=== PATIENT | male | born 1955 | race Caucasian/White ===

== ENCOUNTER 2020-12-13 15:27 | Inpatient (IN) | payer OTHER, SELFPAY ==
[2020-12-13] VITALS (7 sets, daily range): BP systolic 94–116; BP diastolic 52–65; PULSE 72–94; RESP 15–26; TEMP 36.6–37.3; O2SAT 93–97
--- NOTE | ~2020-12-13 | CT_ITS ---
EXAMINATION: CTA chest PE protocol DATE: 12/13/2020 23:52 INDICATION: Shortness of breath. Weakness. Covid-positive. TECHNIQUE: Computed tomography angiography (CTA) of the chest was performed with 100 mL Omnipaque-350 intravenous contrast timed to evaluate the pulmonary arteries. Coronal maximum intensity projection 3D-reconstructions were created by the technologist. Automated exposure control and iterative reconst ruction technique were employed. Exam dose: 975.75 mGy-cm total exam DLP. COMPARISON: 12/13/2020 portable AP chest FINDINGS: There is diagnostic contrast enhancement of the pulmonary arteries and no evidence of pulmo nary embolism. No thoracic aortic aneurysm or dissection. No hilar or mediastinal mass lesion or lymphadenopathy. Normal heart size. No pericardial or pleural effusion. There are extensive patchy bilateral pulmonary infiltrates consistent with Covid 19 pneumonia. Small sliding hiatal hernia. IMPRESSION: Extensive bilateral multifocal pneumonia consistent with Covid 19 pneumonia No evidence of pulmonary embolism Reviewed, dictated and finalized at [facility]. Reviewed, dictated and finalized at [facility].
--- NOTE | ~2020-12-13 | XR_ITS ---
EXAMINATION: XR chest 1V portable DATE: 12/15/2020 08:43 INDICATION: COVID pneumonia. Low oxygen saturation. TECHNIQUE: frontal view of the chest was obtained. COMPARISON: Chest radiograph dated 12/13/2020 FINDINGS: No significant interval change in patchy airspace opacities throughout both lungs. No pleural effusio n or pneumothorax. The cardiomediastinal silhouette is normal. IMPRESSION: 1. No significant change in scattered patchy bilateral lung disease consistent with COVID pneumonia. Reviewed, dictated and finalized at [facility].
--- NOTE | ~2020-12-13 | XR_ITS ---
EXAMINATION: XR chest 1V portable DATE: 12/13/2020 15:49 INDICATION: COVID positive. Worsening shortness of breath and cough TECHNIQUE: frontal view of the chest was obtained. COMPARISON: None FINDINGS: There are patchy airspace opacities in the bilateral mid and lower lung zones. No pleural effusion or pneumothorax. Cardiomediastinal silhouette is within normal limits for AP technique. IMPRESSION: 1. Patchy bilateral lung disease consistent with COVID pneumonia with differential including less lik gary pulmonary edema. Reviewed, dictated and finalized at [facility]. IMPRESSION: 1. Patchy bilateral lung disease consistent with COVID pneumonia with different ial including less likely pulmonary edema.
--- NOTE | 2020-12-13 15:38 | ECG_ITS ---
Measurements Intervals [place] Rate: 86 P: 36 MS: 174 QRS: -37 QRSD: 134 T: -7 QT: 393 QTc: 470 Interpretive Statements SINUS RHYTHM LEFT AXIS DEVIATION INTRAVENTRICULAR CONDUCTION DELAY BORDERLINE R WAVE PROGRESSION, ANTERIOR LEADS BORDERLINE T WAVE ABNORMALITY- INFERIOR LEADS BASELINE ARTIFACT- II, III, AVR, AVF, V1, V3-V6 BORDERLINE ECG Electronically Signed On 12-13-2020 15:45:52 CDT by Tulio Hatfield D.O.
[2020-12-13 16:14] LABS: Basophils Percent Auto 0.1 % (0.2-1.2); Hematocrit 43.7 % (42.0-52.0); Hemoglobin 14.4 g/dL (14.0-18.0); Immature Granulocyte Absolute 0.03 K/mm3 (0.00-0.031); Immature Granulocyte Percent A 0.3 % (0-0.5); Immature Platelet Fraction Pct 4.1 % (0.9-11.2); Lymphocytes Absolute Auto 0.52 K/mm3 (0.9-3.2); Mean Corpuscular Hemoglobin 26.8 pg (26-34); Mean Corpuscular Volume 81.2 fl (80-100); Mean Platelet Volume 10.5 fl (7.4-10.4); Monocytes Absolute Auto 0.5 K/mm3 (0.1-0.6); Monocytes Percent Auto 6.3 % (2.6-8.5); Neutrophils Absolute Auto 7.5 K/mm3 (1.3-6.7); Neutrophils Percent Auto 87.3 % (45.5-73.1); Platelet Count Result 141 k/mm3 (150-375); Red Blood Count 5.38 M/mm3 (4.6-6.20); Red Cell Distribution Width 14.3 % (11.5-14.5); White Blood Count 8.6 K/mm3 (4.5-10.0)
[2020-12-13 16:22] LABS: Anion Gap 13 mmol/L (8-16); Blood Urea Nitrogen 40 mg/dL (9-20); Calcium 8.6 mg/dL (8.4-10.2); Carbon Dioxide 18 mmol/L (22-30); Chloride 100 mmol/L (98-107); Estimated CRCL calculation 76 ml/min; Estimated Glomerular Filt Rate 51; Glucose 90 mg/dL (65-110); Potassium 3.8 mmol/L (3.4-5.0); Sodium 131 mmol/L (137-145)
--- NOTE | 2020-12-13 17:33 | ED.SOB ---
HPI - SOB/Dyspnea General Chief Complaint: Shortness of Breath/Dyspnea Stated Complaint: SOB,Covid + Time Seen by Provider: 12/13/20 16:25 Source: patient Mode of arrival: ambulatory Limitations: no limitations History of Present Illness HPI Narrative: This is a 65-year-old male that presents to the emergency department for shortness of breath. Reports ongoing cold symptoms x5 days. Reports fever, cough, and congestion. Reports he was diagnosed with coronavirus 3 days ago. Reports today for worsening shortness of breath. He is vaccinated against coronavirus. Denies chest pain or lower extremity edema. Related Data Home Medications Medication Instructions Recorded Confirmed alfuzosin [Uroxatral] 10 mg PO DAILY 12/13/20 clopidogrel 12/13/20 dapagliflozin-metformin [Xigduo XR] PO 12/13/20 glimepiride 2 mg PO DAILY 12/13/20 lisinopril 12/13/20 semaglutide [Ozempic] 0.25 mg SUBCUT WEEKLY 12/13/20 Allergies Allergy/AdvReac Type Severity Reaction Status Date / Time Sulfa (Sulfonamide Allergy Rash Verified 12/13/20 15:38 Antibiotics) Review of Systems Review of Systems: CONSTITUTIONAL: Reports fever CARDIOVASCULAR: Denies chest pain, or edema. RESPIRATORY: Reports cough and dyspnea. GASTROINTESTINAL: Denies abdominal pain, nausea, vomiting All systems reviewed & are unremarkable except as noted in HPI and below PMFSH Past Medical History Medical History (Updated 12/13/20 @ 17:39 by Ghislaine Senior PA-C) History of diabetes mellitus Social History Social History (Updated 12/13/20 @ 17:38 by Ghislaine Senior PA-C) Substance use: never Gender identity (if verbalized by the patient): Male Exam Narrative: GENERAL: Well-appearing, well-nourished, and in no acute distress. HEAD: Normocephalic, atraumatic. EYES: EOMI. CHEST: Clear to auscultation. No respiratory distress. No wheezes rales or rhonchi HEART: Regular rate and rhythm. No murmur heard. Normal peripheral pulses. ABDOMEN: Soft, nontender, nondistended, normal active bowel sounds. EXTREMITIES: Normal range of motion. No edema. SKIN: Warm, dry, no rash. NEURO: No focal deficits. Alert and oriented x3. PSYCH: Normal mood and affect Course Consultations Consultation #1: Spoke with hospitalist about patient and work-up accepts admission Date: 12/13/20 Time: 19:00 Vital Signs Vital signs: Vital Signs Temperature 97.8 F 12/13/20 15:30 Pulse Rate 85 12/13/20 15:30 Respiratory Rate 18 12/13/20 15:30 Blood Pressure 116/59 L 12/13/20 15:30 Pulse Oximetry 93 12/13/20 15:30 Temperature 98.9 F 12/13/20 19:23 Pulse Rate 94 12/13/20 19:23 Respiratory Rate 15 12/13/20 19:23 Blood Pressure 108/59 L 12/13/20 19:23 Pulse Oximetry 95 12/13/20 19:23 MDM - SOB/Dyspnea MDM Narrative Medical decision making narrative: Patient presents to the emergency department for worsening shortness of breath. Recently diagnosed with coronavirus. Hypoxic on arrival to the ED. Placed on 2 L nasal cannula with improvement. CBC without concerning findings. Metabolic panel with mild elevation in creatinine to 1.4. Patient lightly hydrated in the ED with IV fluids. Inflammatory markers are not elevated. Chest x-ray shows bilateral patchy infiltrates consistent with Covid pneumonia. Patient started on dexamethasone and remdesivir. Spoke with hospitalist about patient and work-up accepts admission Lab Data Attestation: I reviewed the patient's lab results. Result diagrams: 12/13/20 15:53 12/13/20 15:53 Labs: Lab Results 12/13/20 12/13/20 12/13/20 Range/Units 15:33 15:53 15:53 WBC 8.6 (4.5-10.0) K/mm3 RBC 5.38 (4.6-6.20) M/mm3 Hgb 14.4 (14.0-18.0) g/dL Hct 43.7 (42.0-52.0) % MCV 81.2 (80-100) fl MCH 26.8 (26-34) pg MCHC 33.0 (32-36) g/dl RDW 14.3 (11.5-14.5) % Plt Count 141 L (150-375) k/mm3 MPV 10.5 H (7.4-10.4) fl Immature Gran %
[2020-12-13] MEDS: SODIUM CHLORIDE 0.9% IV 500 ML 999 ML IV CONT (17:40)
[2020-12-13] MEDS: DEXAMETHASONE SOD PHOS INJ 4 MG/ML VIAL 6 MG IV PUSH (17:41)
[2020-12-13 18:25] LABS: INR 0.9; Prothrombin Time 12.4 Seconds (11.1-14.7)
[2020-12-13 18:26] LABS: Partial Thromboplastin Time 32.6 SECONDS (22.3-36.8)
[2020-12-13 18:43] LABS: Alanine Aminotransferase 45 U/L (4-50); Albumin Level 3.9 g/dL (3.5-5.1); Alkaline Phosphatase 99 U/L (38-126); Aspartate Amino Transferase 42 U/L (17-59); Lactate Dehydrogenase 574 U/L (313-618)
[2020-12-13 19:08] LABS: CRP 17.3 mg/dL (<1.0)
[2020-12-13] MEDS: REMDESIVIR 200 MG/NS 250 ML 200 MG/250 ML BAG 250 MG IVPB (19:23)
[2020-12-13 20:13] LABS: Procalcitonin 1.3 ng/mL
--- NOTE | 2020-12-13 20:47 | PC.NURSE ---
ED Provider notified that patient uses CPAP at 12 or 13 cmH20. He reports that he is unable to even take a nap without cpap due to apnea and was told that his was unable to bring his home machine in to the hospital due to infection risk. ED PA is aware of this and need for CPAP
--- NOTE | 2020-12-13 23:06 | PM.IMHP ---
H&P: HPI History of Present Illness Date/Time: 12/13/20 23:06 this is a 65-year-old male patient who stated that he was fully vaccinated for the COVID-19 back in June or July. The patient had been on vacation with his family when his mother and his and daughter also contacted COVID-19. They all had also have been vaccinated as well. The patient stated that he went to [facility] on Wednesday and was tested for COVID-19 and it turned positive immediately. The patient stated he started having symptoms on Wednesday. Patient stated he had been in condo on [address] [facility]. The patient stated he has been so weak for the last 3 or 4 days that he was not able to get out of bed. The patient stated that he has had a fever over 101. The patient is diabetic any stated that his last A1c was over 8. The patient's drove the patient home [facility] and the patient had increasing shortness of breath. Patient was placed on oxygen at 2 L per nasal cannula. According to documentation his lowest O2 saturation was 93%. The patient was started on Decadron and remdesivir. Patient has cough and congestion fatigue and weakness. Patient's chest x-ray was read as patchy bilateral lung disease consistent with COVID pneumonia and differential including less likely pulmonary edema. Sodium was noted to be 131. Creatinine 1.4 GFR 51. The patient does not recall having any previous kidney disease. CRP 17.3 and ferritin 359. The patient was placed on oxygen at 2 L per nasal cannula. Patient is being admitted to inpatient services on the date of service of 12/13/2020. Chief Complaint: Shortness of Review of Systems Review of Systems: All systems reviewed & are unremarkable except as noted in HPI and below Constitutional: Constitutional: Reports as per HPI and Reports no additional constitutional complaints Eyes: Eyes: Reports as per HPI and Reports no additional eye complaints ENT: Reports system reviewed and no additional complaints, except as documented and Reports Normal hearing present Cardiovascular: Cardiovascular: Reports no additional cardiovascular complaints Respiratory: Respiratory: Reports no additional respiratory complaints and Reports no additional respiratory complaints Gastrointestinal: Gastrointestinal: Reports as per HPI and Reports no additional gastrointestinal complaints Musculoskeletal: Musculoskeletal: Reports no additional musculoskeletal complaints Integumentary/Breasts: Skin/Breast: Reports system reviewed and no additional complaints, except as docu and Reports as per HPI Neurologic: Reports system reviewed and no additional complaints, except as documented, Reports as per HPI and Reports Normal hearing present Psychiatric: Psychiatric: Reports no additional psychiatric complaints and Reports as per HPI Endocrine: Endocrine: Reports no additional endocrine complaints Hematologic/Lymphatic: Hematologic/Lymphatic: Reports no additional hematologic/lymphatic complaints Allergic/Immunologic: Allergic/Immunologic: Reports no additional allergic/immunologic complaints [facility] Past Medical History Medical History (Updated 12/13/20 @ 23:25 by Stephanie Payton NP) BPH (benign prostatic hyperplasia) DM2 (diabetes mellitus, type 2) History of diabetes mellitus Loose right total knee arthroplasty Venous stasis Surgical History Surgical History (Updated 12/13/20 @ 23:19 by Stephanie Payton NP) History of bilateral carpal tunnel release S/P rotator cuff repair Family History Family History (Updated 12/13/20 @ 23:19 by Stephanie Payton NP) Sibling Acute myocardial infarction Father Alzheimer's dementia Social History Social History (Updated 12/13/20 @ 23:20 by Stephanie Payton NP) Social History: The patient is and lives with his . He has 3 children. His is the durable power workers compensation attorney for healthcare. The patient desires to be a full code. The patient works for [employer]. The patient does
[2020-12-14] VITALS (16 sets, daily range): BP systolic 100–132; BP diastolic 59–67; PULSE 64–91; RESP 16–22; TEMP 35–36.7; O2SAT 90–94; BMI 45.2
--- NOTE | 2020-12-14 00:10 | ADMGEN ---
This patient, Roland Gonsales, was admitted to 3 [facility] Surg Room 327-01. Patient/family oriented to hospital policies and general routines including ID bracelet, bed and alarms, visiting hours, pain management, procedures, bathroom and other care routines, personal items, smoking policy, room service/diet, and visiting hours. Information on how to activate the Rapid Response Team has been discussed. Patient/Family are encouraged to report perceived risks to care and to ask questions if they do not understand what they are told or what they should do.
[2020-12-14 05:47] LABS: Basophils Percent Auto 0.1 % (0.2-1.2); Hematocrit 41.6 % (42.0-52.0); Hemoglobin 13.6 g/dL (14.0-18.0); Immature Granulocyte Absolute 0.05 K/mm3 (0.00-0.031); Immature Granulocyte Percent A 0.6 % (0-0.5); Immature Platelet Fraction Pct 4.2 % (0.9-11.2); Lymphocytes Absolute Auto 0.37 K/mm3 (0.9-3.2); Lymphocytes Percent Auto 4.7 % (18.3-44.2); Mean Corpuscular HGB Conc 32.7 g/dl (32-36); Mean Corpuscular Hemoglobin 26.7 pg (26-34); Mean Corpuscular Volume 81.6 fl (80-100); Mean Platelet Volume 10.3 fl (7.4-10.4); Monocytes Absolute Auto 0.4 K/mm3 (0.1-0.6); Monocytes Percent Auto 5.1 % (2.6-8.5); Neutrophils Absolute Auto 7.1 K/mm3 (1.3-6.7); Neutrophils Percent Auto 89.5 % (45.5-73.1); Platelet Count Result 143 k/mm3 (150-375); Red Cell Distribution Width 14.1 % (11.5-14.5); White Blood Count 7.9 K/mm3 (4.5-10.0)
[2020-12-14 05:52] LABS: Lactic Acid Reflex 0.9 mmol/L (0.7-2.1)
[2020-12-14 05:55] LABS: Alanine Aminotransferase 38 U/L (4-50); Albumin Level 3.6 g/dL (3.5-5.1); Alkaline Phosphatase 94 U/L (38-126); Anion Gap 10 mmol/L (8-16); Aspartate Amino Transferase 36 U/L (17-59); Bilirubin,Total 0.8 mg/dL (0.2-1.3); Blood Urea Nitrogen 38 mg/dL (9-20); Calcium 8.4 mg/dL (8.4-10.2); Carbon Dioxide 19 mmol/L (22-30); Chloride 107 mmol/L (98-107); Estimated CRCL calculation 92 ml/min; Estimated Glomerular Filt Rate > 60; Glucose 135 mg/dL (65-110); Lactate Dehydrogenase 526 U/L (313-618); Magnesium 2.3 mg/dL (1.6-2.3); Potassium 4.4 mmol/L (3.4-5.0); Sodium 136 mmol/L (137-145)
[2020-12-14 05:58] LABS: Hemoglobin A1C 7.3 % (<5.7)
[2020-12-14 06:04] LABS: Prothrombin Time 12.9 Seconds (11.1-14.7)
[2020-12-14 07:32] LABS: Thyroid Stimulating Hormone Reflex 0.046 uIU/mL (0.465-4.68)
[2020-12-14 08:31] LABS: Glucose Point of Care 124 mg/dl (65-105)
[2020-12-14] MEDS: DEXAMETHASONE SOD PHOS INJ 4 MG/ML VIAL 6 MG IV PUSH (09:21)
[2020-12-14 09:33] LABS: Free T4 Free Thyroxine Reflex 1.69 ng/dL (0.78-2.19)
[2020-12-14 10:31] LABS: Total Triiodothyronine (T3) 0.92 NG/ML (0.97-1.69)
[2020-12-14 12:58] LABS: Glucose Point of Care 143 mg/dl (65-105)
--- NOTE | 2020-12-14 14:01 | PM.IMPN ---
Progress Note: A&P Assessment and Plan (1) Acute respiratory failure due to COVID-19: Code(s): U07.1 - COVID-19; J96.00 - Acute respiratory failure, unspecified whether with hypoxia or hypercapnia Status: Acute Assessment and Plan: Patient tested positive this past Wednesday and has been fully vaccinated with Pfizer 2 doses in July. Patient's low is reported PO2 was 93%. The patient is currently on 2 L per nasal cannula, wean from 4 L this morning. started on Decadron and remdesivir. having difficulty speaking in full sentences. Continue with DuoNeb q.4 hours inhalers. And albuterol Q [address] scan did not show any pulmonary emboli but did show bilateral COVID pneumonia I instructed the patient to lay on his abdomen or on his left or right side, but to avoid lying on his back. He could also set up in the chair or have a recliner brought in. He is to continue using his CPAP machine from home with naps and nighttime sleeping Ordered incentive spirometer Checking LDH and ferritin and CRP daily to monitor for improvement (2) BPH (benign prostatic hyperplasia): Code(s): N40.0 - Benign prostatic hyperplasia without lower urinary tract symptoms Status: Chronic Assessment and Plan: Continue with patient's home medication of Uroxatral. Patient voiding without difficulty at this time (3) Venous stasis: Code(s): I87.8 - Other specified disorders of veins Status: Chronic Assessment and Plan: Patient stated he is on Plavix, continued No swelling or redness indicating infection or fluid collection at this time Peripheral circulation intact with cap refill and warm toes to the touch (4) DM2 (diabetes mellitus, type 2): Code(s): E11.9 - Type 2 diabetes mellitus without complications Status: Chronic Assessment and Plan: Accu-Cheks AC and HS Receiving sliding scale insulin. Will continue to hold the metformin due to a CT angio completed yesterday Glucose levels controlled at this time in the 130s Continue diabetic diet Ordered PT and OT (5) Acute renal failure: Code(s): N17.9 - Acute kidney failure, unspecified Status: Acute Assessment and Plan: Holding lisinopril and his metformin for the acute renal failure. No history of previous history of chronic renal disease. Creatinine improved from 1.4-1.1 today continue strict I/Os and daily weights. Subjective Date/time seen: 12/14/20 14:01 Roland was admitted with shortness of breath and dyspnea, found to be positive with COVID pneumonia on his CT scan but no pulmonary emboli. He was on 4 L nasal cannula this morning and wean to 2 L at this time. Encourage the patient to slowly and gradually increase his activity level, while allowing the nurse to monitor his pulse ox with ambulation and activity. He and his and daughter did receive both of his Pfizer vaccines in July, and unfortunately they all have COVID at this time. His and 40-year-old daughter are doing well at home. Roland has some comorbidities making him more at risk for COVID complications, including diabetes, severe sleep apnea and severe morbid obesity. His LDH is elevated at 526 today his lactic is normal, I have ordered CRP level in the morning as well as ferritin and LDH repeat. Will continue his IV Remdesivir and IV dexamethasone. I have placed him on DuoNeb treatments Q 4 Hrs and continued the p.r.n. albuterol. I ordered incentive spirometer, PT and OT. Review of Systems Review of Systems: All systems reviewed & are unremarkable except as noted in HPI and below Constitutional: Constitutional: Reports as per HPI and Reports no additional constitutional complaints Eyes: Eyes: Reports as per HPI and Reports no additional eye complaints ENT: Reports system reviewed and no additional complaints, except as documented and Reports Normal hearing present Cardiovascular: Cardiovascular: Reports no additional cardi
[2020-12-14] MEDS: IPRATROPIUM BR 0.02% INH SOLN 0.5 MG/2.5 ML VIAL INHALATION ×2 (16:28→21:35)
[2020-12-14] MEDS: ALBUTEROL SULFATE NEB 2.5 MG/0.5 ML INH INHALATION ×2 (16:28→21:35)
[2020-12-14 17:49] LABS: Glucose Point of Care 186 mg/dl (65-105)
[2020-12-14] MEDS: REMDESIVIR 100 MG/NS 250 ML 100 MG/250 ML BAG 250 MG IVPB (20:06)
[2020-12-14 20:56] LABS: Glucose Point of Care 350 mg/dl (65-105)
[2020-12-14] MEDS: INSULIN ASPART (*BKC) 100 UNITS/ML 6 UNITS SUB-Q (21:11)
[2020-12-15] VITALS (17 sets, daily range): BP systolic 86–125; BP diastolic 39–67; PULSE 58–87; RESP 14–24; TEMP 35.9–36.7; O2SAT 6–97
[2020-12-15] MEDS: IPRATROPIUM BR 0.02% INH SOLN 0.5 MG/2.5 ML VIAL INHALATION ×4 (00:08→20:48)
[2020-12-15] MEDS: ALBUTEROL SULFATE NEB 2.5 MG/0.5 ML INH INHALATION ×4 (00:08→20:48)
[2020-12-15 06:15] LABS: Hematocrit 41.6 % (42.0-52.0); Hemoglobin 13.5 g/dL (14.0-18.0); Mean Corpuscular HGB Conc 32.5 g/dl (32-36); Mean Corpuscular Hemoglobin 26.8 pg (26-34); Mean Corpuscular Volume 82.7 fl (80-100); Mean Platelet Volume 10.2 fl (7.4-10.4); Platelet Count Result 162 k/mm3 (150-375); Red Blood Count 5.03 M/mm3 (4.6-6.20); Red Cell Distribution Width 13.9 % (11.5-14.5); White Blood Count 6.7 K/mm3 (4.5-10.0)
[2020-12-15 06:37] LABS: Alanine Aminotransferase 34 U/L (4-50); Albumin Level 3.5 g/dL (3.5-5.1); Alkaline Phosphatase 89 U/L (38-126); Anion Gap 9 mmol/L (8-16); Aspartate Amino Transferase 31 U/L (17-59); Bilirubin,Total 0.4 mg/dL (0.2-1.3); Blood Urea Nitrogen 41 mg/dL (9-20); CRP 7.4 mg/dL (<1.0); Calcium 8.6 mg/dL (8.4-10.2); Carbon Dioxide 20 mmol/L (22-30); Chloride 107 mmol/L (98-107); Estimated CRCL calculation 92 ml/min; Estimated Glomerular Filt Rate > 60; Glucose 178 mg/dL (65-110); Lactate Dehydrogenase 484 U/L (313-618); Potassium 3.8 mmol/L (3.4-5.0); Sodium 136 mmol/L (137-145)
--- NOTE | 2020-12-15 08:28 | PM.IMPN ---
Progress Note: A&P Assessment and Plan (1) Acute respiratory failure due to COVID-19: Code(s): U07.1 - COVID-19; J96.00 - Acute respiratory failure, unspecified whether with hypoxia or hypercapnia Status: Acute Assessment and Plan: Patient tested positive this past Wednesday and has been fully vaccinated with Pfizer 2 doses in July. Patient's low is reported PO2 was 93%. The patient is currently on 6 L per nasal cannula, poor ABG and desaturated on 2-4L O2 this morning. started on Decadron and remdesivir. having difficulty speaking in full sentences - improved and resolved. Continue with DuoNeb q.4 hours inhalers. And albuterol Q [address] scan did not show any pulmonary emboli but did show bilateral COVID pneumonia I instructed the patient to lay on his abdomen or on his left or right side, but to avoid lying on his back. He could also set up in the chair or have a recliner brought in. He is to continue using his CPAP machine from home with naps and nighttime sleeping using incentive spirometer - getting 1250-1500ml volumes normal LDH and ferritin rising and CRP improving daily to monitor for improvement (2) BPH (benign prostatic hyperplasia): Code(s): N40.0 - Benign prostatic hyperplasia without lower urinary tract symptoms Status: Chronic Assessment and Plan: Continue with patient's home medication of Uroxatral. Patient voiding without difficulty at this time (3) Venous stasis: Code(s): I87.8 - Other specified disorders of veins Status: Chronic Assessment and Plan: Patient stated he is on Plavix, continued No swelling or redness indicating infection or fluid collection at this time Peripheral circulation intact with cap refill and warm toes to the touch (4) DM2 (diabetes mellitus, type 2): Code(s): E11.9 - Type 2 diabetes mellitus without complications Status: Chronic Assessment and Plan: Accu-Cheks AC and HS Receiving sliding scale insulin. Will continue to hold the metformin due to a CT angio completed yesterday Glucose levels controlled at this time Continue diabetic diet Ordered PT and OT (5) Acute renal failure: Code(s): N17.9 - Acute kidney failure, unspecified Status: Acute Assessment and Plan: Holding lisinopril and his metformin for the acute renal failure. No history of previous history of chronic renal disease. Creatinine improved from 1.4-1.1 today continue strict I/Os and daily weights. Subjective Date/time seen: 12/15/20 08:28 Roland's blood pressure was low this morning upon review of vital signs from overnight. Lowest was 86/39 and the last blood pressure checked was 97/67. I have instructed nursing to hold his lisinopril dosing at this time and recheck his vital signs. I also noticed that his O2 sats were lower overnight than yesterday. He was weaned from 4 L to 2 L of oxygen yesterday and continue that overnight. With his CPAP wearing. His O2 sats were between 92 and 96 overnight. I have ordered a urinalysis, urine culture, blood cultures, D-dimer, and ABG. I ordered a chest x-ray today, the last imaging done was 2 days ago. His pO2 on 4 L O2 NC was low, so I increased him to 6 L O2 NC and instructed nursing staff to keep him there overnight, and resume weaning to 4 L O2 tomorrow. CXR showed no change. CRP improved today. LDH remained WNL, Ferritin increased from 359 to 459. Repeating tomorrow. When I went to see Roland this afternoon, after these interventions, he stated that he was feeling MUCH much better and was very happy to see me. He is able to now carry on longer conversations and has been ambulating about his hospital room to increase his activity. He was able to demonstrate getting 1500ml volumes on his incentive spirometer for me. Review of Systems Review of Systems: All systems reviewed & are unremarkable except as noted in HPI and below Constitutional: Constitutional: Reports
[2020-12-15 08:32] LABS: Glucose Point of Care 144 mg/dl (65-105)
[2020-12-15 09:37] LABS: D Dimer 1.14 ug/mL (<0.48)
[2020-12-15] MEDS: PANTOPRAZOLE 40 MG TABLET PO (10:02)
[2020-12-15] MEDS: DEXAMETHASONE SOD PHOS INJ 4 MG/ML VIAL 6 MG IV PUSH (10:02)
[2020-12-15] MEDS: lisinopriL 10 MG TABLET PO (10:02)
[2020-12-15] MEDS: CLOPIDOGREL BISULFATE 75 MG TABLET PO (10:03)
[2020-12-15 12:52] LABS: Glucose Point of Care 226 mg/dl (65-105)
[2020-12-15] MEDS: INSULIN ASPART (*BKC) 100 UNITS/ML SUB-Q ×2 (12:58→17:36)
[2020-12-15 13:41] LABS: Alveolar/Arterial O2 Gradient 153.3 mmHg; Base Excess ABG -3.1 mEq/l (+/-2.0); Device NASAL CANNULA; Fractional Inspired Oxygen 36 %; HCO3 ABG 19.8 mEq/l (22.0-26.0); Modified Allen's Test Pass; Oxygen Content ABG 18.8 %vol (16.0-22.0); Oxygen Saturation ABG 94.6 % (95.0-100.0); PO2 ABG 68.6 mmHg (80.0-100.0); PO2 FiO2 Ratio Arterial Blood 1.91 %; Site Drawn RIGHT RADIAL; Total Hemoglobin 14.4 g/dL (12.0-18.0); pH ABG 7.438 (7.350-7.450)
[2020-12-15 13:47] LABS: Add Urine Microscopic? YES; Appearance Urine Clear (Clear); Bilirubin Urine Negative (Negative); Blood Urine 1+ (Negative); Color Urine Yellow (Yellow); Glucose Urine UA 3+ mg/dL (Negative); Ketones Urine Negative (Negative); Leukocyte Esterase Ur Negative LEU/UL (NEGATIVE); Mucus Urine Rare /lpf; Nitrate Urine Negative (Negative); Protein Urine 1+ mg/dL (Negative); Specific Grav Ur 1.027 (1.001-1.035)
[2020-12-15 16:31] LABS: Glucose Point of Care 314 mg/dl (65-105)
--- NOTE | 2020-12-15 17:33 | PCRCNOTE ---
Window of time for administration has passed. See next scheduled administration.
[2020-12-15] MEDS: REMDESIVIR 100 MG/NS 250 ML 100 MG/250 ML BAG 250 MG IVPB (20:29)
[2020-12-15] MEDS: INSULIN GLARGINE (*BKC) 100 UNITS/ML 10 UNITS SUB-Q (20:30)
[2020-12-15] MEDS: CALCIUM CARBONATE (TUMS) 500 MG (200 MG ELEMENTAL) 400 MG PO (21:34)
[2020-12-16] VITALS (18 sets, daily range): BP systolic 88–136; BP diastolic 40–74; PULSE 52–98; RESP 18–28; TEMP 36.3–37.2; O2SAT 90–100
[2020-12-16] MEDS: ALBUTEROL SULFATE NEB 2.5 MG/0.5 ML INH INHALATION ×5 (01:03→21:41)
[2020-12-16] MEDS: IPRATROPIUM BR 0.02% INH SOLN 0.5 MG/2.5 ML VIAL INHALATION ×5 (01:03→21:41)
[2020-12-16 01:41] LABS: Glucose Point of Care 247 mg/dl (65-105)
[2020-12-16 06:41] LABS: Hematocrit 38.2 % (42.0-52.0); Hemoglobin 12.3 g/dL (14.0-18.0); Mean Corpuscular HGB Conc 32.2 g/dl (32-36); Mean Corpuscular Hemoglobin 26.7 pg (26-34); Mean Corpuscular Volume 82.9 fl (80-100); Mean Platelet Volume 9.9 fl (7.4-10.4); Platelet Count Result 167 k/mm3 (150-375); Red Blood Count 4.61 M/mm3 (4.6-6.20)
[2020-12-16 07:08] LABS: Prothrombin Time 13.1 Seconds (11.1-14.7)
[2020-12-16 07:10] LABS: Alanine Aminotransferase 33 U/L (4-50); Estimated CRCL calculation 101 ml/min; Estimated Glomerular Filt Rate > 60; Lactate Dehydrogenase 422 U/L (313-618)
[2020-12-16 07:28] LABS: D Dimer 1.08 ug/mL (<0.48)
[2020-12-16 08:14] LABS: Glucose Point of Care 133 mg/dl (65-105)
[2020-12-16] MEDS: DEXAMETHASONE SOD PHOS INJ 4 MG/ML VIAL 6 MG IV PUSH (09:10)
[2020-12-16] MEDS: lisinopriL 10 MG TABLET PO (09:10)
[2020-12-16] MEDS: PANTOPRAZOLE 40 MG TABLET PO (09:10)
[2020-12-16] MEDS: CLOPIDOGREL BISULFATE 75 MG TABLET PO (09:10)
[2020-12-16 12:25] LABS: Glucose Point of Care 198 mg/dl (65-105)
--- NOTE | 2020-12-16 13:20 | PM.IMPN ---
Progress Note: A&P Assessment and Plan (1) Acute respiratory failure due to COVID-19: Code(s): U07.1 - COVID-19; J96.00 - Acute respiratory failure, unspecified whether with hypoxia or hypercapnia Status: Acute Assessment and Plan: Patient tested positive this past Wednesday and has been fully vaccinated with Pfizer 2 doses in July. Patient's low is reported PO2 was 93%. The patient is currently on 6 L per nasal cannula, poor ABG and desaturated on 2-4L O2 this morning. started on Decadron and remdesivir. having difficulty speaking in full sentences - improved and resolved. Continue with DuoNeb q.4 hours inhalers. And albuterol Q [address] scan did not show any pulmonary emboli but did show bilateral COVID pneumonia I instructed the patient to lay on his abdomen or on his left or right side, but to avoid lying on his back. He could also set up in the chair or have a recliner brought in. He is to continue using his CPAP machine from home with naps and nighttime sleeping using incentive spirometer - getting 1250-1500ml volumes normal LDH and ferritin rising and CRP improving daily to monitor for improvement (2) BPH (benign prostatic hyperplasia): Code(s): N40.0 - Benign prostatic hyperplasia without lower urinary tract symptoms Status: Chronic Assessment and Plan: Continue with patient's home medication of Uroxatral. Patient voiding without difficulty at this time (3) Venous stasis: Code(s): I87.8 - Other specified disorders of veins Status: Chronic Assessment and Plan: Patient stated he is on Plavix, continued No swelling or redness indicating infection or fluid collection at this time Peripheral circulation intact with cap refill and warm toes to the touch (4) DM2 (diabetes mellitus, type 2): Code(s): E11.9 - Type 2 diabetes mellitus without complications Status: Chronic Assessment and Plan: Accu-Cheks AC and HS Receiving sliding scale insulin. Will continue to hold the metformin due to a CT angio completed yesterday Glucose levels controlled at this time Continue diabetic diet Ordered PT and OT (5) Acute renal failure: Code(s): N17.9 - Acute kidney failure, unspecified Status: Acute Assessment and Plan: Holding lisinopril and his metformin for the acute renal failure. No history of previous history of chronic renal disease. Creatinine improved from 1.4-1.1 today continue strict I/Os and daily weights. Subjective Date/time seen: 12/16/20 13:20 Roland continues to improve and is very happy with his progress. He states he could ambulate better today without getting severely dyspneic. He was able to wean from 6-5 L today. His ferritin today improved as well as his D-dimer and CRP levels. He has been using his home CPAP machine overnight, but i have noticed that his BPs drop overnight. I will check to see that nursing staff and RT are connecting his supplemental Oxygen into his CPAP machine to continue his supplemental O2 overnight. This may be the cause of his hypotension only occurring during those hours. Checking with RT on this now. Review of Systems Review of Systems: All systems reviewed & are unremarkable except as noted in HPI and below Constitutional: Constitutional: Reports as per HPI and Reports no additional constitutional complaints Eyes: Eyes: Reports as per HPI and Reports no additional eye complaints ENT: Reports system reviewed and no additional complaints, except as documented and Reports Normal hearing present Cardiovascular: Cardiovascular: Reports no additional cardiovascular complaints Respiratory: Respiratory: Reports no additional respiratory complaints and Reports no additional respiratory complaints Gastrointestinal: Gastrointestinal: Reports as per HPI and Reports no additional gastrointestinal complaints Musculoskeletal: Musculoskeletal: Reports no additional musculoskeletal compla
[2020-12-16 16:49] LABS: Glucose Point of Care 250 mg/dl (65-105)
[2020-12-16] MEDS: INSULIN ASPART (*BKC) 100 UNITS/ML SUB-Q (17:13)
[2020-12-16] MEDS: REMDESIVIR 100 MG/NS 250 ML 100 MG/250 ML BAG 250 MG IVPB (20:02)
[2020-12-16] MEDS: INSULIN GLARGINE (*BKC) 100 UNITS/ML 10 UNITS SUB-Q (20:09)
[2020-12-17] VITALS (21 sets, daily range): BP systolic 97–124; BP diastolic 51–68; PULSE 63–89; RESP 18–24; TEMP 36.2–37.3; O2SAT 91–99
[2020-12-17] MEDS: ALBUTEROL SULFATE NEB 2.5 MG/0.5 ML INH INHALATION ×6 (00:01→20:43)
[2020-12-17] MEDS: IPRATROPIUM BR 0.02% INH SOLN 0.5 MG/2.5 ML VIAL INHALATION ×6 (00:01→20:44)
[2020-12-17 03:23] LABS: Glucose Point of Care 253 mg/dl (65-105)
[2020-12-17 06:55] LABS: Hematocrit 38.9 % (42.0-52.0); Hemoglobin 12.6 g/dL (14.0-18.0); Mean Corpuscular HGB Conc 32.4 g/dl (32-36); Mean Corpuscular Hemoglobin 26.5 pg (26-34); Mean Corpuscular Volume 81.7 fl (80-100); Mean Platelet Volume 9.6 fl (7.4-10.4); Platelet Count Result 188 k/mm3 (150-375); Red Blood Count 4.76 M/mm3 (4.6-6.20); Red Cell Distribution Width 13.8 % (11.5-14.5); White Blood Count 4.8 K/mm3 (4.5-10.0)
[2020-12-17 07:25] LABS: INR 1.1; Prothrombin Time 13.6 Seconds (11.1-14.7)
[2020-12-17 08:07] LABS: Glucose Point of Care 96 mg/dl (65-105)
[2020-12-17 08:30] LABS: Alanine Aminotransferase 49 U/L (4-50); Anion Gap 5 mmol/L (8-16); Blood Urea Nitrogen 24 mg/dL (9-20); CRP 4.1 mg/dL (<1.0); Calcium 8.5 mg/dL (8.4-10.2); Carbon Dioxide 24 mmol/L (22-30); Chloride 108 mmol/L (98-107); Estimated CRCL calculation 101 ml/min; Estimated Glomerular Filt Rate > 60; Glucose 113 mg/dL (65-110); Lactate Dehydrogenase 456 U/L (313-618); Sodium 137 mmol/L (137-145)
[2020-12-17] MEDS: CLOPIDOGREL BISULFATE 75 MG TABLET PO (08:53)
[2020-12-17] MEDS: lisinopriL 10 MG TABLET PO (08:53)
[2020-12-17] MEDS: PANTOPRAZOLE 40 MG TABLET PO (08:53)
[2020-12-17] MEDS: DEXAMETHASONE SOD PHOS INJ 4 MG/ML VIAL 6 MG IV PUSH (08:54)
[2020-12-17] MEDS: ENOXAPARIN 40 MG/0.4 ML SYRINGE SUB-Q (10:12)
[2020-12-17 11:57] LABS: Glucose Point of Care 187 mg/dl (65-105)
--- NOTE | 2020-12-17 15:54 | PM.IMPN ---
Progress Note: A&P Assessment and Plan (1) Acute respiratory failure due to COVID-19: Code(s): U07.1 - COVID-19; J96.00 - Acute respiratory failure, unspecified whether with hypoxia or hypercapnia Status: Acute Assessment and Plan: Patient is a 65-year-old man with a history of hypertension, diabetes, BPH, who presented to the emergency room with shortness of breath with exertion. The patient was vaccinated for COVID with [employer] in July 2020. The patient states about 2 weeks ago he developed some nasal congestion and believed he had symptoms of allergies. His symptoms became worse 12/08/20 while down in [place] with his family. He began running fevers of 102 ?. He did a COVID test from the store and became positive on 12/10/20. Then by Wednesday12/13/20 he had dyspnea with exertion and his family decided to come home and came to [facility] for further evaluation. Initial vitals showed blood pressure 116/59, normal pulse at 85 beats per minute, afebrile, 93% on room air. Initial labs showed normal CBC with differential, other than slight thrombopenia 141,000, normal coag panel. Slight hyponatremia at 131, slight dehydration with a creatinine 1.4, BUN 40. Elevated ferritin, CRP. Normal LFTs. Chest x-ray showed patchy bilateral lung disease consistent with COVID pneumonia. CTA showing Extensive bilateral multifocal pneumonia consistent with Covid 19 pneumonia. No evidence of pulmonary embolism. The patient was admitted into the hospital for COVID pneumonia and continued monitoring of oxygenation. He did become hypoxic while in the emergency room and was started on IV Decadron and remdesivir (#4 at 2000 tonight) Currently he is on 5 L of oxygen via nasal cannula. He does have improvement of his symptoms and has been working on walking around. Will continue to wean oxygen as tolerated Continue dexamethasone, Remdesivir, symptomatic care Consider home oxygen evaluation it a few days Continue monitoring. (2) BPH (benign prostatic hyperplasia): Code(s): N40.0 - Benign prostatic hyperplasia without lower urinary tract symptoms Status: Chronic Assessment and Plan: Continue with patient's home medication of Uroxatral. Patient voiding without difficulty at this time (3) Venous stasis: Code(s): I87.8 - Other specified disorders of veins Status: Chronic Assessment and Plan: Patient stated he is on Plavix, continued. Good distal pulses at this time. (4) DM2 (diabetes mellitus, type 2): Code(s): E11.9 - Type 2 diabetes mellitus without complications Status: Chronic Assessment and Plan: Continue to hold metformin and glimepiride since it is well controlled at this time. Accu-Cheks AC and HS . Receiving sliding scale insulin. Hypoglycemic protocol in place. Continue diabetic diet (5) Acute renal failure: Code(s): N17.9 - Acute kidney failure, unspecified Status: Acute Assessment and Plan: Holding lisinopril and his metformin for the acute renal failure and stable blood pressure at this time. No history of previous history of chronic renal disease. Creatinine improved from 1.4-1.0 today, most likely baseline. continue strict I/Os and daily weights. Time Spent With Patient Time with patient: 25 - 35 minutes Subjective Date/time seen: 12/17/20 15:54 Interval history: Date of service 12/17/2020: Patient is feeling much better today. He is still on 5 L of oxygen via nasal cannula. He has been up walking around to the door in back about 6 times with still slight dyspnea with exertion while on the 5 L of oxygen. He denies any fevers, chills. He has improvement of his appetite states is almost back to normal. C
[2020-12-17 17:26] LABS: Glucose Point of Care 244 mg/dl (65-105)
[2020-12-17] MEDS: INSULIN ASPART (*BKC) 100 UNITS/ML SUB-Q (17:26)
[2020-12-17] MEDS: REMDESIVIR 100 MG/NS 250 ML 100 MG/250 ML BAG 250 MG IVPB (21:26)
[2020-12-17] MEDS: SODIUM CHLORIDE NASAL GEL 14.1 GM 1 APPLIC NASAL (21:27)
[2020-12-17] MEDS: INSULIN GLARGINE (*BKC) 100 UNITS/ML 10 UNITS SUB-Q (21:27)
[2020-12-17 22:17] LABS: Glucose Point of Care 252 mg/dl (65-105)
[2020-12-18] VITALS (17 sets, daily range): BP systolic 105–125; BP diastolic 45–72; PULSE 66–102; RESP 18–20; TEMP 36.3–36.9; O2SAT 90–100
[2020-12-18] MEDS: ALBUTEROL SULFATE NEB 2.5 MG/0.5 ML INH INHALATION ×3 (00:30→07:49)
[2020-12-18] MEDS: IPRATROPIUM BR 0.02% INH SOLN 0.5 MG/2.5 ML VIAL INHALATION ×3 (00:30→07:49)
[2020-12-18 07:50] LABS: Glucose Point of Care 126 mg/dl (65-105)
[2020-12-18] MEDS: ENOXAPARIN 40 MG/0.4 ML SYRINGE SUB-Q (09:18)
[2020-12-18] MEDS: lisinopriL 10 MG TABLET PO (09:18)
[2020-12-18] MEDS: PANTOPRAZOLE 40 MG TABLET PO (09:18)
[2020-12-18] MEDS: CLOPIDOGREL BISULFATE 75 MG TABLET PO (09:18)
[2020-12-18] MEDS: DEXAMETHASONE SOD PHOS INJ 4 MG/ML VIAL 6 MG IV PUSH (09:18)
[2020-12-18 11:58] LABS: Glucose Point of Care 138 mg/dl (65-105)
[2020-12-18 12:26] LABS: Prothrombin Time 13.3 Seconds (11.1-14.7)
[2020-12-18 12:32] LABS: Alanine Aminotransferase 52 U/L (4-50); Estimated CRCL calculation 112 ml/min; Estimated Glomerular Filt Rate > 60
[2020-12-18] MEDS: ALBUTEROL SULFATE (*SP) INHALER 1 PUFF (12:32)
--- NOTE | 2020-12-18 15:10 | PM.IMPN ---
Progress Note: A&P Assessment and Plan (1) Acute respiratory failure due to COVID-19: Code(s): U07.1 - COVID-19; J96.00 - Acute respiratory failure, unspecified whether with hypoxia or hypercapnia Status: Acute Assessment and Plan: Patient is a 65-year-old man with a history of hypertension, diabetes, BPH, who presented to the emergency room with shortness of breath with exertion. The patient was vaccinated for COVID with [employer] in July 2020. The patient states about 2 weeks ago he developed some nasal congestion and believed he had symptoms of allergies. His symptoms became worse 12/08/20 while down in [place] with his family. He began running fevers of 102 ?. He did a COVID test from the store and became positive on 12/10/20. Then by Wednesday12/13/20 he had dyspnea with exertion and his family decided to come home and came to [facility] for further evaluation. Initial vitals showed blood pressure 116/59, normal pulse at 85 beats per minute, afebrile, 93% on room air. Initial labs showed normal CBC with differential, other than slight thrombopenia 141,000, normal coag panel. Slight hyponatremia at 131, slight dehydration with a creatinine 1.4, BUN 40. Elevated ferritin, CRP. Normal LFTs. Chest x-ray showed patchy bilateral lung disease consistent with COVID pneumonia. CTA showing Extensive bilateral multifocal pneumonia consistent with Covid 19 pneumonia. No evidence of pulmonary embolism. The patient was admitted into the hospital for COVID pneumonia and continued monitoring of oxygenation. He did become hypoxic while in the emergency room and was started on IV Decadron and remdesivir (#6 at 2000 tonight) Currently he is on 3 L of oxygen via nasal cannula. He does have improvement of his symptoms and has been working on walking around. Will continue to wean oxygen as tolerated Continue dexamethasone, Remdesivir, symptomatic care Will consider home oxygen evaluation tomorrow. Continue monitoring. (2) BPH (benign prostatic hyperplasia): Code(s): N40.0 - Benign prostatic hyperplasia without lower urinary tract symptoms Status: Chronic Assessment and Plan: Continue with patient's home medication of Uroxatral. Patient voiding without difficulty at this time (3) Venous stasis: Code(s): I87.8 - Other specified disorders of veins Status: Chronic Assessment and Plan: Patient stated he is on Plavix, continued. Good distal pulses at this time. (4) DM2 (diabetes mellitus, type 2): Code(s): E11.9 - Type 2 diabetes mellitus without complications Status: Chronic Assessment and Plan: Continue to hold metformin and glimepiride since it is well controlled at this time. Accu-Cheks AC and HS . Receiving sliding scale insulin. Hypoglycemic protocol in place. Continue diabetic diet (5) Acute renal failure: Code(s): N17.9 - Acute kidney failure, unspecified Status: Acute Assessment and Plan: Holding lisinopril and his metformin for the acute renal failure and stable blood pressure at this time. No history of previous history of chronic renal disease. Creatinine improved from 1.4-0.9 today, most likely baseline. Time Spent With Patient Time with patient: 25 - 35 minutes Subjective Date/time seen: 12/18/20 15:10 Interval history: Date of service 12/18/2020: Patient is feeling much better today. He now on 3 L of oxygen via nasal cannula. He has been up walking around to the door in back about 6 times with still slight dyspnea with exertion but O2 stays between 89-93% with exertion on 3L. He denies any fevers, chills. He has improvement of his appetite states is almost back to normal. Continues to have a dry c
[2020-12-18] MEDS: ALBUTEROL SULFATE (*SP) INHALER 2 PUFF INHALATION ×2 (15:16→20:20)
[2020-12-18 17:50] LABS: Glucose Point of Care 162 mg/dl (65-105)
[2020-12-18] MEDS: SALINE 0.65% NAS SOLN 44 ML BTL 1 SPRAY NASAL (22:45)
[2020-12-18] MEDS: REMDESIVIR 100 MG/NS 250 ML 100 MG/250 ML BAG 250 MG IVPB (22:46)
[2020-12-18] MEDS: INSULIN GLARGINE (*BKC) 100 UNITS/ML 10 UNITS SUB-Q (22:46)
[2020-12-18] MEDS: SODIUM CHLORIDE NASAL GEL 14.1 GM 1 APPLIC NASAL (22:59)
[2020-12-18 23:30] LABS: Glucose Point of Care 146 mg/dl (65-105)
[2020-12-19] VITALS (20 sets, daily range): BP systolic 101–126; BP diastolic 58–69; PULSE 68–97; RESP 16–20; TEMP 36.1–36.9; O2SAT 87–100
[2020-12-19] MEDS: ALBUTEROL SULFATE (*SP) INHALER 2 PUFF INHALATION ×5 (01:10→17:03)
[2020-12-19 06:43] LABS: Glucose Point of Care 114 mg/dl (65-105)
[2020-12-19 07:18] LABS: Hematocrit 41.5 % (42.0-52.0); Hemoglobin 13.3 g/dL (14.0-18.0); Mean Corpuscular Hemoglobin 26.7 pg (26-34); Mean Corpuscular Volume 83.2 fl (80-100); Mean Platelet Volume 9.3 fl (7.4-10.4); Platelet Count Result 270 k/mm3 (150-375); Red Blood Count 4.99 M/mm3 (4.6-6.20); Red Cell Distribution Width 13.7 % (11.5-14.5)
[2020-12-19 07:28] LABS: Prothrombin Time 13.3 Seconds (11.1-14.7)
[2020-12-19 07:31] LABS: D Dimer 1.64 ug/mL (<0.48)
[2020-12-19] MEDS: CLOPIDOGREL BISULFATE 75 MG TABLET PO (07:46)
[2020-12-19] MEDS: ENOXAPARIN 40 MG/0.4 ML SYRINGE SUB-Q (07:46)
[2020-12-19] MEDS: PANTOPRAZOLE 40 MG TABLET PO (07:47)
[2020-12-19] MEDS: DEXAMETHASONE SOD PHOS INJ 4 MG/ML VIAL 6 MG IV PUSH (07:47)
[2020-12-19] MEDS: SALINE 0.65% NAS SOLN 44 ML BTL 1 SPRAY NASAL (07:48)
[2020-12-19 08:32] LABS: Alanine Aminotransferase 51 U/L (4-50); Anion Gap 7 mmol/L (8-16); Blood Urea Nitrogen 15 mg/dL (9-20); CRP 6.4 mg/dL (<1.0); Calcium 8.8 mg/dL (8.4-10.2); Carbon Dioxide 24 mmol/L (22-30); Chloride 106 mmol/L (98-107); Estimated CRCL calculation 112 ml/min; Estimated Glomerular Filt Rate > 60; Glucose 109 mg/dL (65-110); Potassium 4.3 mmol/L (3.4-5.0); Sodium 137 mmol/L (137-145)
--- NOTE | 2020-12-19 10:45 | HOMEO2EVAL ---
Evaluation was performed at [facility] Home Oxygen Evaluation RC: Home Oxygen (O2) Evaluation Start: 12/19/20 08:37 Freq: ONCE Status: Active Protocol: RPE Activity Type Activity Date Activity User E-Sign Co-Sign Detail Recorded Client Recorded Date Recorded By Document 12/19/20 10:00 CHIOMA [email or web address] 12/19/20 10:45 CHIOMA Document 12/19/20 10:01 CHIOMA [email or web address] 12/19/20 10:45 CHIOMA Document 12/19/20 10:02 CHIOMA [email or web address] 12/19/20 10:45 CHIOMA Document 12/19/20 10:03 CHIOMA [email or web address] 12/19/20 10:45 CHIOMA Document 12/19/20 10:05 CHIOMA [email or web address] 12/19/20 10:45 CHIOMA Document 12/19/20 10:15 CHIOMA [email or web address] 12/19/20 10:45 CHIOMA 12/19/20 12/19/20 12/19/20 10:00 10:01 10:02 Home O2 Evaluation Test Phase Resting Resting Resting Oxygen Delivery Room Air Nasal Cannula Nasal Cannula Oxygen Flow Rate (L/min) 1 2 Pulse Oximetry (90-100 %) 87 L 87 L 87 L Pulse Rate (60-100 beats/min) Home Oxygen Evaluation Comments Treatment Charges O2 Evaluation - Inpatient 12/19/20 12/19/20 12/19/20 10:03 10:05 10:15 Home O2 Evaluation Test Phase Resting Exercise Resting Oxygen Delivery Nasal Cannula Nasal Cannula Nasal Cannula Oxygen Flow Rate (L/min) 3 3 3 Pulse Oximetry (90-100 %) 90 91 92 Pulse Rate (60-100 beats/min) 73 97 72 Home Oxygen Evaluation Comments pt requires 3l at rest and with activity Treatment Charges
[2020-12-19 12:16] LABS: Glucose Point of Care 169 mg/dl (65-105)
--- NOTE | 2020-12-19 12:58 | PCRCNOTE ---
PT REQUIRES 3 L AT REST AND WITH ACTIVITY. SET UP HOME O2 WITH [facility]. THEY ARE TO BRING TANK TO ROOM PRIOR TO D/C
--- NOTE | 2020-12-19 14:55 | PM.IMPN ---
Progress Note: A&P Assessment and Plan (1) Acute respiratory failure due to COVID-19: Code(s): U07.1 - COVID-19; J96.00 - Acute respiratory failure, unspecified whether with hypoxia or hypercapnia Status: Acute Assessment and Plan: Patient is a 65-year-old man with a history of hypertension, diabetes, BPH, who presented to the emergency room with shortness of breath with exertion. The patient was vaccinated for COVID with [employer] in July 2020. The patient states about 2 weeks ago he developed some nasal congestion and believed he had symptoms of allergies. His symptoms became worse 12/08/20 while down in [place] with his family. He began running fevers of 102 ?. He did a COVID test from the store and became positive on 12/10/20. Then by Wednesday12/13/20 he had dyspnea with exertion and his family decided to come home and came to [facility] for further evaluation. Initial vitals showed blood pressure 116/59, normal pulse at 85 beats per minute, afebrile, 93% on room air. Initial labs showed normal CBC with differential, other than slight thrombopenia 141,000, normal coag panel. Slight hyponatremia at 131, slight dehydration with a creatinine 1.4, BUN 40. Elevated ferritin, CRP. Normal LFTs. Chest x-ray showed patchy bilateral lung disease consistent with COVID pneumonia. CTA showing Extensive bilateral multifocal pneumonia consistent with Covid 19 pneumonia. No evidence of pulmonary embolism. The patient was admitted into the hospital for COVID pneumonia and continued monitoring of oxygenation. He did become hypoxic while in the emergency room and was started on IV Decadron and remdesivir (#7 at 2000 tonight) Currently he is on 3 L of oxygen via nasal cannula. He does have improvement of his symptoms and has been working on walking around. Will continue to wean oxygen as tolerated Continue dexamethasone, Remdesivir, symptomatic [facility] oxygen evaluation showing 3L at rest and with exertion. Continue monitoring. (2) BPH (benign prostatic hyperplasia): Code(s): N40.0 - Benign prostatic hyperplasia without lower urinary tract symptoms Status: Chronic Assessment and Plan: Continue with patient's home medication of Uroxatral. Patient voiding without difficulty at this time (3) Venous stasis: Code(s): I87.8 - Other specified disorders of veins Status: Chronic Assessment and Plan: Patient stated he is on Plavix, continued. Good distal pulses at this time. (4) DM2 (diabetes mellitus, type 2): Code(s): E11.9 - Type 2 diabetes mellitus without complications Status: Chronic Assessment and Plan: Continue to hold metformin and glimepiride since it is well controlled at this time. Accu-Cheks AC and HS . Receiving sliding scale insulin. Hypoglycemic protocol in place. Continue diabetic diet (5) Acute renal failure: Code(s): N17.9 - Acute kidney failure, unspecified Status: Acute Assessment and Plan: Holding lisinopril and his metformin for the acute renal failure and stable blood pressure at this time. No history of previous history of chronic renal disease. Creatinine improved from 1.4-0.9 today, most likely baseline. Time Spent With Patient Time with patient: 25 - 35 minutes Subjective Date/time seen: 12/19/20 14:55 Interval history: Date of service 12/19/2020: Patient is feeling much better today. He now on 3 L of oxygen via nasal cannula and had his home oxygen evaluation which showed he needs remain on 3 with exertion as well. He continues to be active and feeling fairly well at this time. He denies any fevers, chills. He has improvement of his appetite states is almost back to normal. Continues
[2020-12-19] MEDS: DIPHENHYDRAMINE 1%/ZINC 0.1% CREAM 30 GM TUBE 1 APPLIC TOPICAL (17:15)
[2020-12-19 17:24] LABS: Glucose Point of Care 241 mg/dl (65-105)
[2020-12-19] MEDS: INSULIN ASPART (*BKC) 100 UNITS/ML SUB-Q (17:43)
[2020-12-19] MEDS: REMDESIVIR 100 MG/NS 250 ML 100 MG/250 ML BAG 250 MG IVPB (20:52)
[2020-12-19] MEDS: SODIUM CHLORIDE NASAL GEL 14.1 GM 1 APPLIC NASAL (20:52)
[2020-12-19] MEDS: INSULIN GLARGINE (*BKC) 100 UNITS/ML 10 UNITS SUB-Q (20:53)
[2020-12-19 21:15] LABS: Glucose Point of Care 315 mg/dl (65-105)
[2020-12-20] VITALS: BP 102/52; PULSE 57; RESP 18; TEMP 36.6; O2SAT 96
[2020-12-20 00:30] VITALS: PULSE 61; O2SAT 96
[2020-12-20] MEDS: ALBUTEROL SULFATE (*SP) INHALER 2 PUFF INHALATION ×3 (00:41→11:31)
[2020-12-20 04:00] VITALS: BP 137/76; PULSE 56; RESP 18; TEMP 36.4; O2SAT 96
[2020-12-20 06:56] LABS: Prothrombin Time 13.3 Seconds (11.1-14.7)
[2020-12-20 08:00] VITALS: O2SAT 92
[2020-12-20 08:11] LABS: Alanine Aminotransferase 43 U/L (4-50); Estimated CRCL calculation 125 ml/min; Estimated Glomerular Filt Rate > 60
[2020-12-20 08:40] LABS: Glucose Point of Care 143 mg/dl (65-105)
[2020-12-20 08:47] VITALS: O2SAT 92
[2020-12-20] MEDS: CLOPIDOGREL BISULFATE 75 MG TABLET PO (08:51)
[2020-12-20] MEDS: lisinopriL 10 MG TABLET PO (08:51)
[2020-12-20] MEDS: ENOXAPARIN 40 MG/0.4 ML SYRINGE SUB-Q (08:51)
[2020-12-20] MEDS: PANTOPRAZOLE 40 MG TABLET PO (08:51)
[2020-12-20] MEDS: DEXAMETHASONE SOD PHOS INJ 4 MG/ML VIAL 6 MG IV PUSH (08:52)
[2020-12-20] MEDS: DIPHENHYDRAMINE 1%/ZINC 0.1% CREAM 30 GM TUBE 1 APPLIC TOPICAL (09:32)
[2020-12-20 12:07] LABS: Glucose Point of Care 193 mg/dl (65-105)
--- NOTE | 2020-12-20 13:15 | PCDIET ---
Weekly nutritional screen. Patient is tolerating current diet, consistent carb, which is appropriate, with adequate intake--100% of all meals. No weight loss reported. Bowels moving appropriately. No nutritional needs at this time.
[2020-12-20 14:00] VITALS: BP 108/61; PULSE 82; RESP 16; TEMP 36.3; O2SAT 97
--- NOTE | 2020-12-20 14:18 | PM.DS ---
DS: Admitting Diagnosis Admitting Diagnosis SOB DS: Discharge Diagnosis Discharge Diagnosis (1) Acute respiratory failure due to COVID-19: Code(s): U07.1 - COVID-19; J96.00 - Acute respiratory failure, unspecified whether with hypoxia or hypercapnia Status: Acute Assessment and Plan: Patient is a 65-year-old man with a history of hypertension, diabetes, BPH, who presented to the emergency room with shortness of breath with exertion. The patient was vaccinated for COVID with [employer] in July 2020. The patient states about 2 weeks ago he developed some nasal congestion and believed he had symptoms of allergies. His symptoms became worse 12/08/20 while down in [place] with his family. He began running fevers of 102 ?. He did a COVID test from the store and became positive on 12/10/20. Then by Wednesday12/13/20 he had dyspnea with exertion and his family decided to come home and came to [facility] for further evaluation. Initial vitals showed blood pressure 116/59, normal pulse at 85 beats per minute, afebrile, 93% on room air. Initial labs showed normal CBC with differential, other than slight thrombopenia 141,000, normal coag panel. Slight hyponatremia at 131, slight dehydration with a creatinine 1.4, BUN 40. Elevated ferritin, CRP. Normal LFTs. Chest x-ray showed patchy bilateral lung disease consistent with COVID pneumonia. CTA showing Extensive bilateral multifocal pneumonia consistent with Covid 19 pneumonia. No evidence of pulmonary embolism. The patient was admitted into the hospital for COVID pneumonia and continued monitoring of oxygenation. He did become hypoxic while in the emergency room and was started on IV Decadron and remdesivir (#7) Currently he is on 3 L of oxygen via nasal cannula. Home oxygen evaluation showing 3L at rest and with exertion. At this time the patient is feeling well and ready to go home. I will discharge him on Decadron 6 mg for 4 more days of treatment. Continue taking [id number] medications as needed for your symptoms. Continue incentive spirometer. Frequently walking to prevent clotting. Follow-up with her primary care in 1 week. Return to ER warnings given. The patient understands and agrees the plan all questions answered. (2) BPH (benign prostatic hyperplasia): Code(s): N40.0 - Benign prostatic hyperplasia without lower urinary tract symptoms Status: Chronic Assessment and Plan: (3) Venous stasis: Code(s): I87.8 - Other specified disorders of veins Status: Chronic Assessment and Plan: (4) DM2 (diabetes mellitus, type 2): Code(s): E11.9 - Type 2 diabetes mellitus without complications Status: Chronic Assessment and Plan: (5) Acute renal failure: Code(s): N17.9 - Acute kidney failure, unspecified Status: Acute Assessment and Plan: Resolved DS: Summary Hospital Course Hospital Course: See above Status at Discharge Cognitive/behavioral status at discharge: Stable, improved. Time Spent with Patient Time attestation: Total time spent providing and/or coordinating discharge services: 39 Time spent: Greater than 30 minutes Exam Narrative: General: 65-year-old man sitting up in the chair watching TV. Appears comfortable on 3L via NC. In no acute distress. Skin: No jaundice or cyanosis. Good skin turgor. Neck: Full range of motion. Supple. Respiratory: Lungs are clear to auscultation bilaterally. No wheezing, rales or rhonchi auscultated. No bony chest wall tenderness. Cardiovascular: The heart has a regular rate and rhythm without murmur. Lower extremities: Chronic venous stasis changes to lower extremities. No lower extremity edema.
== END 2020-12-20 16:00 | disposition home or self-care (01) | DRG 177 ==
LOC: ANHED 17:39 → ANH3MEDSUR 12-14 12:43
PROVIDERS: Emergency Medicine; Nurse Practitioner; Physician Assistant; Admitting Provider Hospitalist; Emergency Provider Emergency Medicine; PCP Family Medicine; Visit Provider Physician Assistant
DX: U07.1 COVID-19 (principal); J96.00 Acute respiratory failure, unspecified whether with hypoxia or hypercapnia; J12.82 Pneumonia due to coronavirus disease 2019; I10 Essential (primary) hypertension; E11.9 Type 2 diabetes mellitus without complications; N40.0 Benign prostatic hyperplasia without lower urinary tract symptoms; I87.8 Other specified disorders of veins; Z79.84 Long term (current) use of oral hypoglycemic drugs; Z79.899 Other long term (current) drug therapy; Z88.2 Allergy status to sulfonamides
CPT/HCPCS: 36415; 36600; 71045; 71275; 80048; 80053; 80076; 81001; 82565; 82728; 82805; 82948; 83036; 83605; 83615; 83735; 84145; 84439; 84443; 84460; 84480; 85025; 85027; 85055; 85380; 85610; 85730; 86140; 87040; 87086; 87088; 93005; 94618; 94640; 96361; 96365; 96375; 97110; 97116; 97162; 97165; 99285; A9270; J1100; J1650; J1815; J7040; Q9967

== ENCOUNTER 2020-12-22 08:29 | Emergency (ER) | payer OTHER, SELFPAY ==
--- NOTE | ~2020-12-22 | US_ITS ---
EXAMINATION: US venous doppler UE DATE: 12/22/2020 10:14 INDICATION: Left upper limb pain and swelling post IV insertion one week prior. TECHNIQUE: Grayscale images without and with compression and Doppler images of the left upper extremi ty veins were obtained. COMPARISON: None. FINDINGS: Localized wall thickening thrombosis of an occluded noncompressible superficial vein at the dorsum of the left hand at the site of prior IV placement. There appears to be some overlying subcutaneous cinthya ma consistent with thrombophlebitis. The more proximal aspect of the superficial vein at the level of the wrist is patent and compressible. The left internal jugular vein, subclavian vein, axillary vein , brachial vein, basilic vein, cephalic vein, radial vein, and ulnar vein are patent. IMPRESSION: 1. Localized thrombophlebitis at a superficial vein at the dorsum of the left hand at the site of IV insertion which does not extend to the wrist. No evidence of venous thrombosis of the remaining veins of the left upper limb. Reviewed, dictated and finalized at location A. IMPRESSION: 1. Localized thrombophlebitis at a superficial vein at the dorsum of the left h and at the site of IV insertion which does not extend to the wrist. No evidence of venous thrombosis of the remaining veins of the left upper limb.
[2020-12-22 08:44] VITALS: BP 112/66; PULSE 20; RESP 19; TEMP 37.2; O2SAT 94
--- NOTE | 2020-12-22 09:48 | ED.GENADULT ---
HPI - General Adult General Chief complaint: Extremity Injury, Upper Stated complaint: left hand swelling, fever Time Seen by Provider: 12/22/20 09:03 Source: patient and RN notes reviewed History of Present Illness HPI narrative: Patient is a 85 y/o female complaining of left hand pain and swelling starting 2 day ago when he was released from this hospital after admission for COVID pneumonia. He states that he had IV in that hand. He describes his pain as a pressure. His pain is mild at rest, but worsens with movement. His pain radiates to left forearm. He also had fever of 101.8 this morning, but it came down with Tylenol. He still has some cough and SOB, but feels like he is getting better gradually. Related Data Home Medications Medication Instructions Recorded Confirmed Ozempic 0.25 mg SUBCUT WEEKLY 12/13/20 12/14/20 Xigduo XR 1 tablet PO DAILY 12/13/20 12/14/20 alfuzosin [Uroxatral] 10 mg PO DAILY 12/13/20 12/14/20 clopidogrel 75 mg PO DAILY 12/13/20 12/14/20 glimepiride 2 mg PO DAILY 12/13/20 12/14/20 lisinopril 10 mg PO DAILY 12/13/20 12/14/20 Calcium-Vitamin D 1 tablet PO DAILY 12/14/20 12/14/20 Prilosec OTC 20 mg PO DAILY 12/14/20 12/14/20 Allergies Allergy/AdvReac Type Severity Reaction Status Date / Time Sulfa (Sulfonamide Allergy Rash Verified 12/13/20 15:38 Antibiotics) Review of Systems Constitutional: Constitutional: Reports chills, Reports fever(s), Denies headache(s) and Denies weakness Eyes: Eyes: Denies blurry vision ENT: Denies headache(s) and Denies neck pain Cardiovascular: Cardiovascular: Denies chest pain and Reports dyspnea Respiratory: Respiratory: Reports cough and Reports dyspnea Gastrointestinal: Gastrointestinal: Denies abdominal pain, Denies diarrhea, Denies nausea and Denies vomiting Genitourinary: Genitourinary: Denies hematuria and Denies dysuria Musculoskeletal: Musculoskeletal: Reports as per HPI, Denies back pain, Denies neck pain and Reports other (left hand and forearm pain) Neurologic: Denies headache(s) and Denies weakness [facility] Past Medical History Medical History (Updated 12/22/20 @ 13:12 by Viv Nair MD) BPH (benign prostatic hyperplasia) DM2 (diabetes mellitus, type 2) History of diabetes mellitus Loose right total knee arthroplasty Venous stasis Surgical History Surgical History (Updated 12/13/20 @ 23:19 by Stephanie Payton NP) History of bilateral carpal tunnel release S/P rotator cuff repair Family History Family History (Updated 12/14/20 @ 00:44 by Stephenie Guerra) Sibling Acute myocardial infarction Father Alzheimer's dementia Mother Hypertension Social History Social History (Updated 12/13/20 @ 23:20 by Stephanie Payton NP) Social History: The patient is and lives with his . He has 3 children. 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 The patient desires to be a full code. The patient works for [employer]. The patient does not use any marijuana tobacco or alcohol. Smoking status: Never smoker Alcohol intake: never Substance use: never Substance use type: does not use Gender identity (if verbalized by the patient): Male Spiritual care concerns: No (confucianism) Exam Const: General: no acute distress and well developed Orientation/consciousness: oriented to person, oriented to place, oriented to time and patient oriented x3 HENMT: Head: normocephalic Ears: external ears normal General nose exam: Normal external nose present Eyes: General: appearance normal, both eyes and all related structures Conjunctivae: conjunctivae normal Neck: Neck: normal visual inspection and full ROM Chest: Chest palpation & inspection: normal inspection of the chest and no tenderness Resp: Effort & Inspection: normal respiratory effort Auscultation: clear to auscultation bilaterally Cardio: Rate: regular rate Rhythm: regular rhythm GI: GI Palp: No abdominal tenderness and Yes Soft to palpat
--- NOTE | 2020-12-22 10:41 | PC.NURSE ---
urinary drainage bag attached and flushed by this rn. catheter easy to flush and pull urine back. pt now draining dark brown urine into bag. appro 300cc out initially.
[2020-12-22 10:43] LABS: Basophils Percent Auto 0.2 % (0.2-1.2); Eosinophils Percent Auto 0.1 % (0-4.4); Hematocrit 40.8 % (42.0-52.0); Immature Granulocyte Absolute 0.05 K/mm3 (0.00-0.031); Immature Granulocyte Percent A 0.4 % (0-0.5); Lymphocytes Absolute Auto 0.39 K/mm3 (0.9-3.2); Lymphocytes Percent Auto 3.1 % (18.3-44.2); Mean Corpuscular HGB Conc 31.9 g/dl (32-36); Mean Corpuscular Hemoglobin 26.5 pg (26-34); Mean Corpuscular Volume 83.1 fl (80-100); Mean Platelet Volume 9.3 fl (7.4-10.4); Monocytes Absolute Auto 0.7 K/mm3 (0.1-0.6); Monocytes Percent Auto 5.9 % (2.6-8.5); Neutrophils Absolute Auto 11.3 K/mm3 (1.3-6.7); Neutrophils Percent Auto 90.3 % (45.5-73.1); Platelet Count Result 224 k/mm3 (150-375); Red Blood Count 4.91 M/mm3 (4.6-6.20); Red Cell Distribution Width 13.6 % (11.5-14.5); White Blood Count 12.6 K/mm3 (4.5-10.0)
[2020-12-22 10:55] LABS: Lactic Acid Reflex 1.1 mmol/L (0.7-2.1)
[2020-12-22 10:56] LABS: Alanine Aminotransferase 52 U/L (4-50); Albumin Level 3.3 g/dL (3.5-5.1); Alkaline Phosphatase 92 U/L (38-126); Anion Gap 7 mmol/L (8-16); Aspartate Amino Transferase 41 U/L (17-59); Blood Urea Nitrogen 25 mg/dL (9-20); Calcium 8.6 mg/dL (8.4-10.2); Carbon Dioxide 26 mmol/L (22-30); Chloride 102 mmol/L (98-107); Estimated CRCL calculation 92 ml/min; Estimated Glomerular Filt Rate > 60; Glucose 136 mg/dL (65-110); Sodium 135 mmol/L (137-145)
--- NOTE | 2020-12-22 11:41 | PC.NURSE ---
pt amb with steady gait to bathroom
[2020-12-22 13:23] VITALS: BP 145/77; PULSE 88; RESP 22; O2SAT 94
== END 2020-12-22 13:24 | disposition home or self-care (01) ==
PROVIDERS: Emergency Provider Emergency Medicine
DX: T80.1XXA Vascular complications following infusion, transfusion and therapeutic injection, initial encounter (principal); I80.8 Phlebitis and thrombophlebitis of other sites; L03.114 Cellulitis of left upper limb; Z86.16 Personal history of COVID-19; N40.0 Benign prostatic hyperplasia without lower urinary tract symptoms; E11.9 Type 2 diabetes mellitus without complications; Z96.651 Presence of right artificial knee joint; Z79.84 Long term (current) use of oral hypoglycemic drugs; Z79.899 Other long term (current) drug therapy
CPT/HCPCS: 36415; 80053; 83605; 85025; 87040; 87147; 87186; 93971; 99284

== ENCOUNTER 2023-03-21 16:09 | Emergency (ER) | payer MEDICARE, SELFPAY ==
--- NOTE | ~2023-03-21 | XR_ITS ---
[XR ribs RT 2V w CXR 2V ] INDICATION: Mid anterior rib pain with inspiration TECHNIQUE: Frontal projection of the upper right ribs, frontal projection of the lower right ribs, ob lique projection of all the right ribs, frontal inspiratory chest x-ray for interpretation. FINDINGS: There is right sixth rib fracture, age indeterminate. Moderate right pneumothorax. Heart si ze normal. Right basilar and mid thoracic compressive atelectasis. No midline shift. IMPRESSION: 1: Moderate right pneumothorax with underlying compressive atelectasis. 2: Age-indeterminate right sixth rib fracture. Dr. Ray Samuels discussed with Dr. Narayan Park MD at 03/21/2023 20:11 OFFICE SERVICES CLERK. Reviewed, dictated and finalized at location A. CE SERVICES CLERK IMPRESSION: 1: Moderate right pneumothorax with underlying compressive atelectasis. 2: Age-indeterminate right sixth rib fracture. Dr. Ray Samuels discussed with Dr. Narayan Park MD at 03/21/2023 20:1 1 OFFICE SERVICES CLERK.
[2023-03-21 16:17] VITALS: BP 126/71; PULSE 88; RESP 20; TEMP 36.6; O2SAT 99
[2023-03-21 19:28] VITALS: O2SAT 95
[2023-03-21 19:29] VITALS: BP 112/75; PULSE 96; RESP 18; O2SAT 96
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
[2023-03-21 20:47] VITALS: PULSE 99; RESP 14; O2SAT 98
--- NOTE | 2023-03-21 20:48 | PC.NURSE ---
Pt moved to room 1. Report given to Jessica WALLER.
[2023-03-21 21:05] VITALS: PULSE 89; RESP 22; O2SAT 97
== END 2023-03-21 22:28 | disposition short-term general hospital (02) ==
PROVIDERS: Emergency Provider Student in an Organized Health Care Education/Training Program
DX: S27.0XXA Traumatic pneumothorax, initial encounter (principal); S22.31XA Fracture of one rib, right side, initial encounter for closed fracture; N40.0 Benign prostatic hyperplasia without lower urinary tract symptoms; E11.51 Type 2 diabetes mellitus with diabetic peripheral angiopathy without gangrene; I73.9 Peripheral vascular disease, unspecified; Z79.84 Long term (current) use of oral hypoglycemic drugs; Z79.85 Long-term (current) use of injectable non-insulin antidiabetic drugs; V86.55XA Driver of 3- or 4- wheeled all-terrain vehicle (ATV) injured in nontraffic accident, initial encounter
CPT/HCPCS: 71046; 71100; 99285; C1729

== ENCOUNTER 2024-12-12 15:29 | Outpatient (CLI) | payer MEDICARE, SELFPAY ==
--- OUTSIDE RECORDS SUMMARY | 2024-12-12 15:38 | XMS_ITS | Encounter Summary ---
Author Organization [facility] Health Address [facility] [place] [address] Care Team Providers Care Acute Specialist Name Role Phone Rohit Torres DO Primary Care Provider + Mauricio Velásquez MD Unavailable Rohit Torres DO Unavailable [phone] Jorden Modi MD Unavailable [phone] Jorden Modi MD Primary Care Provider [phone] Myrtle Johnson LMSW Unavailable Jorden Modi MD Primary Care Provider [phone] Brian Min MD Unavailable - [phone] Cinthia Watts RN Unavailable [phone] Jorden Modi MD Unavailable Jane Fontaine MA Unavailable Jorden Modi MD Unavailable [phone] Aileen Sainz Unavailable [phone] Jorden Modi MD Unavailable [phone] Encounter Details Date Type Department Care Team (Late st Contact Info) Description 06/22/2014 [facility] Out[facility] Visit EXTERNAL NON-[facility] DEPT Rohit Torres DO [address] [place] [address] Social History Tobacco Use Types Packs/Day Years Used Date Smoking Tobacco: Never Smokeless Tobacco: Never Alcohol Use Standard Drinks/Week Comments No 0 (1 standard drink = 0.6 oz pur e alcohol) Sex and Gender Information Value Date Recorded Sex Assigned at Male 07/03/2022 11:49 AM CDT Legal Sex Male 4:28 AM BOWLING 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 MANAGER Gender Identity Not on file Sexual Orientation Not on file documented as of this encounter Plan of Treatment Upcoming Encounters Date Type Department Care Team (Late st Contact Info) Description 01/05/2025 11:00 AM CDT Office Visit [facility] - Endocrinology [address] [place] [phone] Faarz Vickers MD [address] [place] [phone] 02/15/2025 9:10 AM CDT Office Visit [facility] Orthopedics [address] [phone] Reynaldo Willis PA-C [address] [phone] 05/18/2025 8:40 AM BOWLING FLOOR MANAGER Documentation [facility] Health Cancer Care [address] [place] [phone] 05/18/2025 9:00 AM BOWLING FLOOR MANAGER Office Visit [facility] Cancer Care [address] [place] [phone] Lizbet Puentes MD [address] [place] [phone] 05/18/2025 11:00 AM BOWLING FLOOR MANAGER Office Visit [facility] Medical [facility] - Internal Medicine [address] [place] [address], [place] [phone] Jorden Modi MD [address] [facility] [address] [place] [phone] 05/25/2025 11:00 AM BOWLING FLOOR MANAGER Office Visit [facility] Health Heart & Vascular Care [address] [facility] [address] [place] [address] Brian Min MD [address] [facility] [address] [place] [phone] [phone] (Work) documented as of this encounter Goals Goal Patient Goal Type Associated Problems Recent Progress Patient-Stated? Author [facility] Lifestyle: Have labs drawn Lifestyle On track(06/24/19 17 8:56 AM BOWLING FLOOR MANAGER) No Rach Alas documented as of this encounter Visit Diagnoses Not on filedocumented in this encounter Care Teams Acute Specialist Relationship Specialty Start Date End Date Rohit Torres DO PCP - General 05/15/08 06/09/22 Rohit Torres DO [address] [place] [address] PCP - Attributed-[facility] [place] 01/17/22 04/18/22 Jorden Modi MD [address] [place] [address] [address] [place] [phone] PCP - Attributed-[facility] MA 04/19/22 07/06/23 Jorden Modi MD [address] [place], [place] [address] [place] [phone] PCP - General Internal Medicine 06/10/22 06/14/22 Jorden Modi MD [address] [facility] [address] [place] [phone] PCP - General Internal Medicine 06/15/22 Jorden Modi MD [address] [place] [address] [address] [place] [phone] PCP - Attributed-[employer] MA 04/19/23 05/06/24 Jorden Modi MD [address] [place] [address] [address] [place] [phone] PCP - Attributed-C MA 05/20/24 Jorden Modi MD [address] [place] [address] [address] [place] [phone] PCP - Attributed-[facility] MA ST P4P 06/17/24 09/03/24 Mauricio Velásquez [place] [address] [address] Physical Medicine and Rehabilitation 01/15/22 Myrtle Johnson SWEEPER OPERATOR [employer]IGHWAYS Outpatient Pipe Maker Care Management 06/15/22 06/15/22 Brian Min MD [address] [facility] [address] [place] [phone] [phone] (Work) Cardiovascular Disease 06/19/22 Cinthia Watts RN Surgical First AssistantLumber Bearer 03/26/23 05/14/23 Jane Fontaine MA Care Coordination Specialist Care Management 10/25/23 10/25/23 Aileen Sainz Care Coordination Specialist Care Management 06/21/24 06/21/24 documented as of this encounter
--- OUTSIDE RECORDS SUMMARY | 2024-12-12 15:38 | XMS_ITS | Clinical Summary ---
Author Organization [facility] Address [address] [place] [address] Care Team Providers Care U.S. Senator Name Role Phone Unavailable Primary Care Provider Unavailabl e Social History Tobacco Use Types Packs/Day Years Used Date Smoking Tobacco: Never Assessed Sex and Gender Information Value Date Recorded Sex Assigned at Not on file Legal Sex Male 9:27 AM CDT Gender Identity Not on file Sexual Orientation Not on file Plan of Treatment Health Maintenance Due Date Last Done Comments DIABETES MICROALBUMIN ANNUAL SCREEN 1975 LDL CHOLESTEROL ANNUAL 1975 FIT-DNA Q 3 years 2002 FIT/FOBT Q 1 year 2002 Flex Sig/CT Colonography Q 5 years 2002 RSV VACCINE (60+ or ) (1 - Risk 60-74 years 1-dose series) 2017 COVID-19 Vaccine (2023-2 5 season) 2024 12/22/2023, 04/09/2023, 2022, Additional history exists INFLUENZA VACCINE (#1) 2024 , 03/23/2023, 01/26/2020, Additional history exists DIABETES ANNUAL RETINAL EXAM 04/14/2025 04/14/2024 DIABETES HBA1C Q 6 MONTHS 05/19/20252024, 06/29/2024, 04/21/2024, Additional history exists DIABETES ANNUAL FOOT EXAM 06/29/2025 06/29/2024 DTAP/TDAP/TD VACCINES (2 - T d or Tdap) 01/26/2027 01/26/2017 COLORECTAL SCREENING 04/02/2027 04/02/2017 Colorectal Cancer Screening 04/02/2027 PNEUMOCOCCAL VACCINE 50+ YEARS Completed 04/22/2022 , 08/13/2017 ZOSTER VACCINE Completed 02/17/2024, 11/25/2023 Insurance
--- OUTSIDE RECORDS SUMMARY | 2024-12-12 15:38 | XMS_ITS | Encounter Summary ---
Author Organization [facility] Health Address [facility]3 [facility] [place] [address] Care Team Providers Care Registered Dental Assistant Rda Name Role Phone Rohit Torres DO Primary Care Provider + Mauricio Velásquez MD Unavailable [phone] Rohit Torres DO Unavailable [phone] Jorden Modi MD Unavailable Jorden Modi MD Primary Care Provider [phone] Myrtle Johnson LMSW Unavailable Jorden Modi MD Primary Care Provider [phone] Brian Min MD Unavailable - [phone] Cinthia Watts RN Unavailable [phone] Jorden Modi MD Unavailable Jane Fontaine MA Unavailable Jorden Modi MD Unavailable [phone] Aileen Sainz Unavailable Jorden Modi MD Unavailable [phone] Encounter Details Date Type Department Care Team (Late st Contact Info) Description 08/07/2011 [facility]TER[facility] DEPT Rohit Torres DO [address] [place] [address] Social History Tobacco Use Types Packs/Day Years Used Date Smoking Tobacco: Never Smokeless Tobacco: Never Alcohol Use Standard Drinks/Week Comments No 0 (1 standard drink = 0.6 oz pur e alcohol) Sex and Gender Information Value Date Recorded Sex Assigned at Male 07/03/2022 11:49 AM CDT Legal Sex Male 4:28 AM WASTE PICKER Gender Identity Not on file Sexual Orientation Not on file documented as of this encounter Plan of Treatment Upcoming Encounters Date Type Department Care Team (Late st Contact Info) Description 01/05/2025 11:00 AM CDT Office Visit [facility] - Endocrinology [address] [place] [phone] Faraz Vickers MD [address] [place] [phone] 02/15/2025 9:10 AM CDT Office Visit [facility] Orthopedics [address] [phone] Reynaldo Willis PA-C [address] [phone] 05/18/2025 8:40 AM WASTE PICKER Documentation [facility] Health Cancer Care [address] [place] [phone] 05/18/2025 9:00 AM WASTE PICKER Office Visit [facility] Cancer Care [address] [place] [phone] Lizbet Puentes MD [address] [place] [phone] 05/18/2025 11:00 AM WASTE PICKER Office Visit [facility] Medical [facility] - Internal Medicine [address] [place] [address], [place] [phone] Jorden Modi MD [address] [facility] [address] [place] [phone] 05/25/2025 11:00 AM WASTE PICKER Office Visit [facility] Heart & Vascular Care [address] [facility] [address] [place] [address] Brain Min MD [address] [place] [phone] (Work) documented as of this encounter Visit Diagnoses Not on filedocumented in this encounter Care Teams Registered Dental Assistant Rda Relationship Specialty Start Date End Date Rohit Torres DO PCP - General 05/15/08 06/09/22 Rohit Torres DO [address] [place] [address] PCP - Attributed-[facility] MA 01/17/22 04/18/22 Jorden Modi MD [address] [place] [address] [address] [place] [phone] PCP - Attributed-[facility] MA 04/19/22 07/06/23 Jorden Modi MD [address] [place] [address] [address] [place] [phone] PCP - General Internal Medicine 06/10/22 06/14/22 Jorden Modi MD [address] [place] [address] [address] [place] [phone] PCP - General Internal Medicine 06/15/22 Jorden Modi MD [address] [facility] [address] [place] [phone] PCP - Attributed-[employer] MA 04/19/23 05/06/24 Jorden Modi MD [address] [place] [address] [address] [place] [phone] PCP - Attributed-[facility] MA 05/20/24 Jorden Modi MD [address] [place], [place] [address]Y [address] [place] [phone] PCP - Attributed-[facility] MA ST P4P 06/17/24 09/03/24 Mauricio Velás[place] [address] [facility] [address] [place] [address] Physical Medicine and Rehabilitation 01/15/22 Myrtle Johnson [facility] Soda Column Operator Care Management 06/15/22 06/15/22 Brian Min MD [address] [facility] [address] [place] [phone] (Work) Cardiovascular Disease 06/19/22 Cinthia Watts RN Location WorkerTravel Freight And Passenger Agent 03/26/23 05/14/23 Jane Fontaine MA Care Coordination Specialist Care Management 10/25/23 10/25/23 Aileen Sainz Care Coordination Specialist Care Management 06/21/24 06/21/24 documented as of this encounter
--- OUTSIDE RECORDS SUMMARY | 2024-12-12 15:38 | XMS_ITS | Clinical Summary ---
Author Organization [facility] Address [address] [place] [address] Care Team Providers Care Business Intelligence Analyst Name Role Phone Mauricio Velásquez MD Unavailable [phone] Jorden Modi MD Primary Care Provider [phone] Brian Min MD Unavailable - [phone] Jorden Modi MD Unavailable [phone] Source Comments [facility],non-owned Affiliates and Associated Physician Practices is amultiple site organization consisting of ambulatory clinics and hospital sitesin [place], [place], [place] and [place]. This disclosure is being madepursuant to the Care Everywhere program and may not contain all information available regarding this patient. Last updated 18.[facility] Allergies Active Allergy Reactions Criticality Noted Date Comments Latex Rash Medium 01/26/2017 Sulfa Drugs Rash Low 11/05/2008 Medications * Be aware that medications may not be up to date on this document. Alwaysverify current medications with the patient. PRILOSEC 20 MG CPDR Take 1 (one) capsule by mouth daily before breakfast Active Cholecalciferol (VITAMIN D) 2000 UNITS capsule Take 1 (one) capsule by mouth once daily Active CPAPIndications: Primary central sleep apnea Use as directed Please provide patient with CPAP machine and all necessary supplies 1 Each 08/22/19 20 Active alfuzosin CR 24hr (Uroxatral) 10 MG tablet Take 1 (one) tablet by mouth once daily 06/30/19 23 Active blood glucose test stripIndications :DM (diabetes mellitus) type II, controlled, with peripheral vascular disorder (HCC) Use 1 (one) strip 2 times daily 100 strip 11 09/01/19 23 Active Cetirizine HCl (ZYRTEC PO) Take 10 mg by mouth as needed Active sildenafil (Revatio) 20 MG tablet One tablet before sexual activity , max 8 per month Reasons: Erectile Dysfunction 8 tablet 4 09/06/19 24 Active clopidogrel (plaVIX) 75 MG tablet Take 1 (one) tablet by mouth once daily 90 tablet 3 02/21/20 24 Active lisinopril (Prinivil; Zestril) 2.5 MG tabletIndication s:Hypertension Take 1 (one) tablet by mouth once daily Reasons: High Blood Pressure 90 tablet 3 04/21/19 25 Active azelastine (Optivar) 0.05 % ophthalmic solution Instill 1 (one) drop into both eyes 2 times daily 18 mL 06/06/19 25 Active Additional Information Patient not taking.Reported on 11/16/2024 metFORMIN ER 24hr (Glucophage XR) 500 MG tabletIndication s:DM (diabetes mellitus) type II, controlled, with peripheral vascular disorder (HCC) TAKE 1 (ONE) TABLET BY MOUTH 2 TIMES DAILY 180 tablet 1 08/17/19 25 Active glimepiride (Amaryl) 2 MG tabletIndication s:DM (diabetes mellitus) type II, controlled, with peripheral vascular disorder (HCC) TAKE 1 TABLET BY MOUTH TWICE A DAY FOR TYPE 2 DIABETES 180 tablet 1 08/17/19 25 Active Semaglutide (2 MG/DOSE) 8 MG/3ML Subcutaneous Solution Pen-injector (Ozempic (2 MG/DOSE))Indicat ions:DM (diabetes mellitus) type II, controlled, with peripheral vascular disorder (HCC) Inject 2 (two) mg subcutaneously every 7 days (once a week) 12 mL 2 5 12:42 PM CDT 08/17/19 25 Active atorvastatin (Lipitor) 10 MG tablet Take 1 (one) tablet by mouth once daily 100 tablet 4 11/07/19 25 Active Hospital, Clinic, or Other Facility Administered Medication Ordered Dose Route Frequency Start Date End Date Status lidocaine PF (Xylocaine MPF) 1 % injection 6 mLIndications:Primary osteoarthritis of both knees 6 mL IX ONCE 11/16/2024 11/16/2024 Ended methylPREDNISolone acetate (DEPO-Medrol) injection 160 mgIndications:Primary osteoarthritis of both knees 160 mg IX ONCE 11/16/2024 11/16/2024 Ended Active Problems Problem Noted Date Diagnosed Date Lumbosacral spondylosis without myelopathy 11/16 Arthritis of both knees 11/16/2024 Platelets decreased 04/25/2024 Chronic diastolic heart failure 04/21/2024 Medicare annual wellness visit, subsequent 10/17 Penile erection impairment 10/18/2023 Annual physical exam 10/18/2023 Acute deep vein thrombosis ( DVT) of proximal vein of right lower extremity 06/15/2022 Cellulitis of right lower extremity 06/10/2022 Obesity, morbid 02/23/2022 Allergic reaction 07/22/2020 Elevated PSA 07/16/2020 Venous stasis dermatitis of both lower extremiti es 07/16/2020 DM (diabetes mellitus) type II, controlled, with peripheral vascular disorder 12/03/2014 Overview (07/17/2017): IMO update 07 18 2017 CAD (coronary artery disease) 05/15/2008 Essential hypertension, benign 05/15/2008 Pure hypercholesterolemia 05/15/2008 Pure hyperglyceridemia 05/15/2008 GERD (gastroesophageal reflux disease) 9 Sleep apnea Overview (08/21/2019): CPAP Resolved Problems Problem Noted Date Diagnosed Date Resolved Date Cirrhosis, nonalcoholic 09/28/201210/19 Venous stasis ulcers 11/05/2008 025 DM w/o Complication Type II 05/15/2008 12/03/2014 Encounters Date Type Department Care Team Description 12/08/2024 Telephone [facility] Heart & Vascular Care [address] [address] Brian Min MD Pre-op Clearance 11/16/2024 1:40 PM CDT Office Visit [facility] Cancer Care [address] [facility] [place]. [address] [place] [phone] Lizbet Puentes MD Thrombocytopenia (Primary Dx); Acute deep vein thrombosis (DVT) of proximal vein of right lower extremity (HCC); QUINTANILLA (nonalcoholic steatohepatitis); Morbid obesity (HCC); Elevated PSA 11/16/2024 10:30 AM CDT Office Visit [facility] - Internal Medicine [address] [place] [address] [address] [place] [address] Jorden Modi MD Essential hypertension, benign (Primary Dx); DM (diabetes mellitus) type II, controlled, with peripheral vascular disorder (HCC); Venous stasis dermatitis of both lower extremities; Arthritis of both knees; Lumbosacral spondylosis without myelopathy; Chronic diastolic heart failure (HCC); Coronary artery disease due to lipid rich plaque 11/16/2024 9:00 AM CDT Office Visit [facility] Orthopedics [address] [facility], [facility] [address] [place] [phone] Reynaldo Willis, PALeoC Primary osteoarthritis of both knees (Primary Dx) 11/05/2024 Refill [facility] - Endocrinology [address] [place] [address] [address] [place] [address] Faraz Vickers MD MEDICATION REFILL 10/18/2024 Orders Only [facility] Cancer Care [address] [facility] [address] [place] [address] Nereyda Nichole, SENIOR SAFETY SUPPORT MANAGER(ASCP) Acute deep vein thrombosis (DVT) of proximal vein of right lower extremity (HCC) ; Platelets decreased from Last 3 Months Immunizations Immunization Administration Dates Next Due COVID PFIZER 12+YR 30MCG/0.3mL 12/22/2023,2022 COVID PFIZER BIVALENT 12Y+ 30mcg/0.3ML 2022 Covid Pfizer primary Monoval ent 12+ yr 0.3ml 08/27/2021 Covid Pfizer primary monoval ent 12+ yr 0.3mL Purple cap 03/11/2021,07/11/2020,06/20/2020 HEP B VACCINE, ADULT 3 DOSE 12/03/2022 INFLUENZA VACCINE, HIGH-DOSE , QUADR. (FLUZONE HIGH-DOSE QUADRIVALENT; 65Y+), 0.7 ML (HD-IIV4) 03/23/2023,02/07/2010 INFLUENZA VACCINE, HIGH-DOSE , TRIV. (FLUZONE HIGH-DOSE TRIVALENT; 65Y+) (HD-IIV3) 12/22/2023 INFLUENZA VACCINE, QUADR. (F LUZONE; FLULAVAL; FLUARIX; AFLURIA QUADRIVALENT; 6MO+), 0.5 ML (IIV4) 01/26/2020,02/21/2019,02/11/2018,2016 PNEUMOCOCCAL PCV20 CONJ VAC IM 04/22/2022 PNEUMOCOCCAL PPSV23 08/13/2017 RSV AREXVY 60YR+ 0.5ML 04/23/2023 TDAP (7yrs+) 01/26/2017 Zoster Hzv Vacc Recombinant Inj Im 02/17/2024, Family History Medical History Relation Name Comments Hypercholesterolemia Brother CAD (Coronary Artery Disease) Maternal Grandmother Hypertension Maternal Grandmother Stroke Maternal Grandmother CAD (Coronary Artery Disease) Paternal Grandmother Relation Name Status Comments Brother Maternal Grandmother Paternal Grandmother Social History Tobacco Use Types Packs/Day Years Used Date Smoking Tobacco: Never Smokeless Tobacco: Never Tobacco Cessation:Counseling Given: Not Answered Alcohol Use Standard Drinks/Week Comments No 0 (1 standard drink = 0.6 oz pur e alcohol) Overall Financial Resource Strain (CARDIA) Answe r Date Recorded How hard is it for you to pa y for the very basics like food, housing, medical care, and heating? Not hard at all 06/10/2022 PHQ-2 Answer Date Recorded Patient Health Questionnaire-2 Score 0 11/16/2024 [facility] - Occupational Stress Questionnaire Answer Date Recorded Do you feel stress - tense, restless, nervous, or anxious, or unable to sleep at night because your mind is troubled all the time - these days? Not at all 06/10/2022 Hunger Vital Sign Answer Date Recorded Within the past 12 months, y ou worried that your food would run out before you got the money to buy more. Never true 06/11/19 23 Within the past 12 months, t he food you bought just didn't last and you didn't have money to get more. Never true 06/11/2022 PRAPARE - Transportation Answer Date Re corded In the past 12 months, has l ack of transportation kept you from medical appointments or from getting medications? No 05/21 In the past 12 months, has l ack of transportation kept you from meetings, work, or from getting things needed for daily living? No 06/10/2022 Housing Stability Vital Sign Answer Aries e Recorded In the last 12 months, was t here a time when you were not able to pay the mortgage or rent on time? No 06/10/2022 In the last 12 months, how many places have you lived? 1 06/10/2022 In the last 12 months, was t here a time when you did not have a steady place to sleep or slept in a care home (including now)? No 06/10/2022 Sex and Gender Information Value Date Recorded Sex Assigned at Male 07/03/2022 11:49 AM CDT Legal Sex Male 4:28 AM COMMERCIAL PROPERTY ADMINISTRATOR Gender Identity Not on file Sexual Orientation Not on file Last Filed Vital Signs Vital Sign Reading Time Taken Comments Blood Pressure 115/71 11/16/2024 1:41 PM CDT Pulse 84 11/16/2024 1:41 PM CDT Temperature 36.4 C (97.5 F) 11/16/2024 1:41 PM CDT Respiratory Rate 18 11/16/2024 1:41 PM CDT Oxygen Saturation 95% 11/16/2024 1: 41 PM CDT Inhaled Oxygen Concentration - - Weight 145.5 kg (320 lb 12.8 oz) 11/16/2024 1:41 PM CDT Height 182.9 cm (6') 11/16/2024 1:41 PM CDT Body Mass Index 43.51 11/16/2024 1:41 PM CDT Plan of Treatment Upcoming Encounters Date Type Department Care Team (Late st Contact Info) Description 01/05/2025 11:00 AM CDT Office Visit [facility] - Endocrinology [address] [facility] [address] [place] [address] Faraz Vickers MD [address] [place] [address] [address] [place] [address] 02/15/2025 9:10 AM CDT Office Visit [facility] Health Orthopedics [address] [facility], [address] [place] [phone] Reynaldo Willis PA-C [address] [facility] [address] [place] [phone] 05/18/2025 8:40 AM COMMERCIAL PROPERTY ADMINISTRATOR Documentation [facility] Cancer Care [id number] [place] [address]. [address] [place] [phone] 05/18/2025 9:00 AM COMMERCIAL PROPERTY ADMINISTRATOR Office Visit [facility] Cancer Care [address] [place] [phone] [place] [address] [facility] [address] [place] [phone] 05/18/2025 11:00 AM COMMERCIAL PROPERTY ADMINISTRATOR Office Visit [facility] - Internal Medicine [address] [place] [address] [address] [place] [phone] Jorden Modi MD [address] [place] [address] [address] [place] [address] 05/25/2025 11:00 AM COMMERCIAL PROPERTY ADMINISTRATOR Office Visit [facility] Health Heart & Vascular Care [address] [facility] [address] [place] [address] Brian Min MD [address] [place] [address] -[phone] (Work) Health Maintenance Due Date Last Done Comments COLOGUARD (AGES 45-75) - COLON CA SCREENING 1955 CT COLONOGRAPHY - COLON CA SCREENING 1955 FIT - COLON CA SCREENING 1955 FLEX SIG - COLON CA SCREENING 1955 HEPATITIS B VACCINE (2 of 3 - Risk 3-dose series) 12/31/2022 12/03/2022 COVID-19 VACCINE ( season) 2024 12/22/2023, 04/09/2023, 2022, Additional history exists INFLUENZA VACCINE (#1) 2024 , 03/23/2023, 01/26/2020, Additional history exists DIABETES - URINE PROTEIN SCREENING 04/22/2025 04/22/2024, 10/27/2023, 11/28/2013, Additional history exists DIABETES-SERUM CREATININE 04/26/20252024, 04/22/2024, 05/19/2023, Additional history exists DIABETES-HGB A1C 05/19/2025 11/16/2024, , 04/21/2024, Additional history exists DIABETES-FOOT EXAM WITH MONOFILAMENT 06/29/2025 06/29/2024, 11/28/2013, 09/27/2012, Additional history exists DIABETES RETINOPATHY SCREENING 04/14/2026 04/14/2024, 04/09/2023, 03/26/2022, Additional history exists DTAP/TDAP/TD VACCINES (2 - Td or Tdap) 01/26/2027 01/26/2017 COLON MONITORING 04/02/2027 04/02/2017, 04/02/2017 COLONOSCOPY - COLON CA SCREENING 04/02/2027 04/02/2017, 04/02/2017 Colorectal Cancer Screening 04/02/2027 PNEUMOCOCCAL VACCINE 50+ Completed 04/22/2022, 07/19 Respiratory Syncytial Virus (RSV) Vaccine Pt: or over 60 yrs Completed 04/23/2023 ZOSTER VACCINE Completed 02/17/2024, 11/25/2023 DEPRESSION SCREENING Completed 04/21/2024, 05/20/2023, 06/15/2022, Additional history exists MEDICARE AWV CALENDAR YEAR Completed 04/21/2024, 10/19/2023, 04/09/2023, Additional history exists HEPATITIS C SCREENING Completed 04/26/2024 HIB VACCINE Aged Out No longer eligi ble based on patient's age to complete this topic HPV VACCINE Aged Out No longer eligi ble based on patient's age to complete this topic MENINGOCOCCAL (Group B) VACCINE SHARED DECISION-MAKING Aged Out No longer eligible based on patient's age to complete this topic MENINGOCOCCAL GROUPS A/C/Y/W VACCINE Aged Out No longer eligible based on patient's age to complete this topic Goals Goal Patient Goal Type Associated Problems Recent Progress Patient-Stated? Author Blood Pressure < 140/90 Blood Pressure 115/71(2024 1:41 PM CDT) No Paulina Woodruff MA [facility] Lifestyle: Have labs drawn Lifestyle On track( 017 8:56 AM COMMERCIAL PROPERTY ADMINISTRATOR) No Rach Alas Procedures Procedure Name Priority Date/Time Associated Diagnosis Comments CBC W AUTO DIFFERENTIAL (CANCER CARE) Routine 11/16/2024 1:31 PM CDT Acute deep vein thrombosis (DVT) of proximal vein of right lower extremity (HCC) HEMOGLOBIN A1C - POINT OF CARE (AMB) Routine 11/16/2024 10:17 AM CDT DM (diabetes mellitus) type II, controlled, with peripheral vascular disorder (HCC) COMPREHENSIVE METABOLIC PANEL Routine 04/26/2024 2:52 PM COMMERCIAL PROPERTY ADMINISTRATOR Platelets decreased HEPATITIS SCREEN ACUTE ([facility]) Routine 04/26/2024 2:52 PM COMMERCIAL PROPERTY ADMINISTRATOR Platelets decreased MICROALB/CREAT RATIO URINE RANDOM PANEL Routine 04/22/2024 8:45 AM COMMERCIAL PROPERTY ADMINISTRATOR Medicare annual wellness visit, subsequent EYE EXAM 04/14/2024 ENDOSCOPY, COLON, SCREENING Routine 04/02/2017 8:29 AM COMMERCIAL PROPERTY ADMINISTRATOR from Last 3 Months or Most Recently Relevant to Health Maintenance Results * (ABNORMAL) CBC W AUTO DIFFERENTIAL (C[facility]ER CARE) (11/16/2024 1:31 PM CDT) WBC 5.5 4.4 - 10.7 x10E9/L 11/16/2024 1:40 PM CDT [facility] Neutrophils % 91.3(H) 44.0 - 73.0 % 11/16/2024 1:40 PM CDT [facility] Lymphocytes % 7.6(L) 20.0 - 43.0 % 11/16/2024 1:40 PM CDT [facility] Monocytes % 0.9(L) 5.0 - 13.0 % 11/16/2024 1:40 PM CDT [facility] Eosinophils % 0.2 0.0 - 6.0 % 11/16/2024 1:40 PM CDT [facility] Basophils % 0.0 0.0 - 2.0 % 11/16/2024 1:40 PM CDT [facility] Neutrophil Absolute 5.05 2.01 - 7.14 x10E9/L 11/16/2024 1:40 PM CDT [facility] Lymphocytes Absolute 0.42(L) 1.07 - 3.94 x10E9/L 11/16/2024 1:40 PM CDT [facility] Monocytes Absolute 0.05(L) 0.26 - 1.07 x10E9/L 11/16/2024 1:40 PM CDT [facility] Eosinophils Absolute 0.01 0 - 0.47 x10E9/L 11/16/2024 1:40 PM CDT [facility] Basophils Absolute 0.00 0 - 0.08 x10E9/L 11/16/2024 1:40 PM CDT [facility] RBC 5.56(H) 3.80 - 5.40 x10E12/L 11/16/2024 1:40 PM CDT [facility] Hemoglobin 14.9 12.0 - 17.6 gm/dL 11/16/2024 1:40 PM CDT [facility] Hematocrit 44.3 35.2 - 51.7 % 11/16/2024 1:40 PM CDT [facility] MCV 79.7(L) 80.7 - 98.3 fl 11/16/2024 1:40 PM CDT [facility] MCH 26.8 26.7 - 34.0 pg 11/16/2024 1:40 PM CDT [facility] MCHC 33.6 30.8 - 35.9 gm/dL 11/16/2024 1:40 PM CDT [facility] RDW-CV 14.8 12.1 - 14.9 % 11/16/2024 1:40 PM CDT [facility] Platelet Count 110(L) 153 - 416 x10E9/L 11/16/2024 1:40 PM CDT [facility] MPV 10.0 9.4 - 12.9 fl 11/16/2024 1:40 PM CDT [facility] Blood BLOOD SPECIMEN / Unknown 11/16/2024 1:31 PM CDT 11/16/2024 1:31 PM CDT Lizbet Puentes MD LAB - HEMATOLOGY ORDERABLES Fi nal Result [facility] [id number] [address] * HEMOGLOBIN A1C - POINT OF CARE (HgbA1C) (11/16/2024 10:17 AM CDT) Hemoglobin A1c POCT 6.2 % [facility] Expiration Date 8302480 [facility] Lot # [id number] [facility] QC Verified Yes Yes [facility] Blood BLOOD SPECIMEN / Unknown 11/16/2024 10:17 AM CDT Jorden Modi MD LAB - POINT OF CARE ORDERA BLES Final Result [facility] [address] [place] [address], [facility] [phone] * HEPATITIS SCREEN ACUTE ([facility]) (04/26/2024 2:52 PM COMMERCIAL PROPERTY ADMINISTRATOR) Hepatitis A Virus Antibody IgM Non Reactive Non Reactive [facility] ACCOUNT BILL Hepatitis B Virus Surface Antigen Non Reactive Non Reactive [facility] ACCOUNT BILL Hepatitis B Core Virus Antibody IgM Non Reactive Non Reactive [facility] ACCOUNT BILL Hepatitis C Antibody Non Reactive Non Reactive [facility] ACCOUNT BILL Comment: Non Reactive - Antibodies to Hepatitis C virus (HCV) were no t detected, result does not exclude early acute HCV infection. Performed at: 02 - [facility] [address] [place], [place] [id number] Kindergarten Tutor: Vazquez Chapman PhD, Phone: [phone] Interpretation Comment [facility] ACCOUNT BILL Comment: Not infected with HCV unless early or acute infection is suspected (which may be delayed in an immunocompromised individual), or other evidence exists to indicate HCV infection. Blood BLOOD SPECIMEN / Unknown 04/26/2024 2:52 PM COMMERCIAL PROPERTY ADMINISTRATOR 04/26/2024 Comment:Blood Release to pat i Narrative [facility] ACCOUNT BILL - 04/26/2024 11:06 PM COMMERCIAL PROPERTY ADMINISTRATOR Performed at: 01 - [address], [place], [place] [id number] Kindergarten Tutor: Juan Daniel Diaz [facility], Phone: [phone] us Lizbet Puentes MD LAB - CHEMISTRY ORDERABLES Fin al Result [facility] ACCOUNT BILL [address] [place] [address] * (ABNORMAL) COMPREHENSIVE METABOLIC PANEL (04/26/2024 2:52 PM COMMERCIAL PROPERTY ADMINISTRATOR) Glucose 89 70 - 99 mg/dL [facility] ACCOUNT BILL BUN 19 7 - 26 mg/dL [facility] ACCOUNT BILL Creatinine 1.17 0.72 - 1.25 mg/dL [facility] ACCOUNT BILL eGFR by CKD-EPI 68(L) >=90 mL/min/1.7 3 m2 [facility] ACCOUNT BILL Sodium 141 136 - 145 mmol/L [facility] ACCOUNT BILL Potassium 4.2 3.5 - 5.1 mmol/L [facility] ACCOUNT BILL Chloride 109(H) 98 - 107 mmol/L [facility] ACCOUNT BILL CO2 23 22 - 29 mmol/L [facility] ACCOUNT BILL Calcium 9.6 8.4 - 10.4 mg/dL [facility] ACCOUNT BILL Protein Total 6.6 6.4 - 8.3 gm/dL [facility] ACCOUNT BILL Albumin 4.0 3.4 - 5.0 gm/dL [facility] ACCOUNT BILL Bilirubin Total 0.7 0.2 - 1.2 mg/dL [facility] ACCOUNT BILL Alkaline Phosphatase 66 40 - 150 U/L [facility] ACCOUNT BILL AST 23 5 - 34 U/L [facility] ACCOUNT BILL ALT 32 0 - 55 U/L [facility] ACCOUNT BILL Blood BLOOD SPECIMEN / Unknown 04/26/2024 2:52 PM COMMERCIAL PROPERTY ADMINISTRATOR 04/26/2024 Comment:Blood Release to pat i Narrative [facility] ACCOUNT BILL - 04/26/2024 11:06 PM COMMERCIAL PROPERTY ADMINISTRATOR Performed at: [address] [place] [address] [place] , [place], [place] [id number] Kindergarten Tutor: Juan Daniel Diaz [facility], Phone: [phone] Lizbet Puentes MD LAB - CHEMISTRY ORDERABLES Fin al Result Performing Organization Address [facility] Co de Phone Number [facility] ACCOUNT BILL [address] [place] [address] * MICROALB/CREAT RATIO URINE RANDOM PANEL (04/22/2024 8:45 AM COMMERCIAL PROPERTY ADMINISTRATOR) Creatinine Urine 187.6 Not Estab. mg/dL [facility] ACCOUNT BILL Microalbumin Urine 4.1 Not Estab. ug/mL [facility] ACCOUNT BILL Microalbumin/Crea tinine Ratio 2 0 - 29 mg/g creat [facility] ACCOUNT BILL Comment: Normal: 0 - 29 Moderately increased: 30 - 300 Severely increased: >300 Urine URINE SPECIMEN OBTAINED BY CLEAN CATCH PROCEDURE / Unknown 04/22/2024 8:45 AM COMMERCIAL PROPERTY ADMINISTRATOR 04/22/2024 Narrative [facility] ACCOUNT BILL - 04/23/2024 7:06 AM COMMERCIAL PROPERTY ADMINISTRATOR Performed at: - [address] [id number] Kindergarten Tutor: Vazquez Chapman PhD, Phone: [phone] Jorden Modi MD LAB - URINE CHEMISTRY ORDE GRACE Final Result Performing Organization Address [facility] de Phone Number [facility] ACCOUNT BILL [address] [place] [address] * EYE EXAM (04/14/2024) Anatomical Region Laterality Modality Other 04/14/2024 Narrative 04/14/2024 Ordered by an unspecified provider. us Scanned Document SCANNING ONLY Final Result * ENDOSCOPY, COLON, SCREENING (04/02/2017 8:29 AM COMMERCIAL PROPERTY ADMINISTRATOR) Report Endoscopy POC _ Patient Name: Roland Gonsales Procedure Date: 04/02/2017 8:29 AM Date of : 1955 Admit Type: Outpatient Age: 62 Gender: Male Attending MD: Kp Steiner DO _ Procedure: Colonoscopy Indications: Screening for colorectal malignant neoplasm, This is the patient's first colonoscopy Providers: Kp Steiner DO (Doctor) Referring MD: Rohit Torres DO (Referring MD) Medicines: See the Anesthesia note for documentation of the administered medications Complications: No immediate complications. _ Procedure: Pre-Anesthesia Assessment: - ASA Grade Assessment: III - A patient with severe systemic disease. After I obtained informed consent, the scope was passed under direct vision. Throughout the procedure, the patient's blood pressure, pulse, and oxygen saturations were monitored continuously. The Colonoscope was introduced through the anus and advanced to the cecum, identified by appendiceal orifice and ileocecal valve. The colonoscopy was performed without difficulty. The patient tolerated the procedure well. The quality of the bowel preparation was good. Findings: The perianal and digital rectal examinations were normal. A medium polyp was found in the sigmoid colon. The polyp was pedunculated. The polyp was removed with a hot snare. Resection and retrieval were complete. A small polyp was found in the rectum. The polyp was sessile. The polyp was removed with a hot snare. Resection and retrieval were complete. Non-bleeding internal hemorrhoids were found during retroflexion. The hemorrhoids were small. The exam was otherwise without abnormality. _ Impression: - One medium polyp in the sigmoid colon, removed with a hot snare. Resected and retrieved. - One small polyp in the rectum, removed with a hot snare. Resected and retrieved. - Non-bleeding internal hemorrhoids. - The examination was otherwise normal. Recommendation: - Discharge patient to home. - Await pathology results. - Telephone my office for pathology results in 1 week. - Return to primary care physician as previously scheduled. - If the pathology report reveals adenomatous tissue, then repeat the colonoscopy for surveillance in 5 years. - If the pathology report indicates hyperplastic polyp, then repeat colonoscopy for surveillance in 10 years. - The findings and recommendations were discussed with the patient. Procedure Code(s): --- Professional --- 23254, Colonoscopy, flexible; with removal of tumor(s), polyp(s), or other lesion(s) by snare technique --- Technical --- 16573, Colonoscopy, flexible; with removal of tumor(s), polyp(s), or other lesion(s) by snare technique Diagnosis Code(s): --- Professional --- Z12.11, Encounter for screening for malignant neoplasm of colon D12.5, Benign neoplasm of sigmoid colon K62.1, Rectal polyp K64.8, Other hemorrhoids --- Technical --- Z12.11, Encounter for screening for malignant neoplasm of colon D12.5, Benign neoplasm of sigmoid colon K62.1, Rectal polyp K64.8, Other hemorrhoids CPT copyright 2015 [employer]. All rights reserved. The codes documented in this report are preliminary and upon non emergency services ambulance driver review may be revised to meet current compliance requirements. ___ Kp Steiner DO 04/02/2017 10:04:14 AM This report has been signed electronically. 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 Adv Directive/Living Will/POA 05/15/2008 Adv Directive/Living Will/POA 05/15/2008 * Full Code (Latest Code Status on File) Date Activated Date Inactivated Comments 06/10/2022 2:47 PM 06/13/2022 3:56 PM Care Teams Business Intelligence Analyst Relationship Specialty Start Date End Date Jorden Modi MD [address] [facility] [address] [place] [address] PCP - General Internal Medicine 06/15/22 Jorden Modi MD [address] [place] [address] [place] [phone] PCP - Attributed-[facility] 05/20/24 Mauricio Velás[place] [address] [facility] [address] [place] [address] Physical Medicine and Rehabilitation 01/15/22 Brian Min MD [address] [place] [address] [phone] (Work) Cardiovascular Disease 06/19/22
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
--- OUTSIDE RECORDS SUMMARY | 2024-12-12 15:38 | XMS_ITS | Encounter Summary ---
Author Organization [facility] Health Address [facility] [place] [address] Care Team Providers Care Power Station Operator Name Role Phone Rohit Torres DO Primary Care Provider + Maruicio Velásquez MD Unavailable [phone] Rohit Torres DO Unavailable [phone] Jorden Modi MD Unavailable Jorden Modi MD Primary Care Provider [phone] Myrtle Johnson LMSW Unavailable Jorden Modi MD Primary Care Provider [phone] Brian Min MD Unavailable - [phone] Cinthia Watts RN Unavailable [phone] Jorden Modi MD Unavailable [phone] Jane Fontaine MA Unavailable Jorden Modi MD Unavailable Aileen Sainz Unavailable [phone] Jorden Modi MD Unavailable [phone] Encounter Details Date Type Department Care Team (Late st Contact Info) Description 06/16/2013 [facility] DE[facility] Rohit Torres DO [address] [place] [address] Social History Tobacco Use Types Packs/Day Years Used Date Smoking Tobacco: Never Smokeless Tobacco: Never Alcohol Use Standard Drinks/Week Comments No 0 (1 standard drink = 0.6 oz pur e alcohol) Sex and Gender Information Value Date Recorded Sex Assigned at Male 07/03/2022 11:49 AM CDT Legal Sex Male 4:28 AM IT APPLICATION ARCHITECT Gender Identity Not on file Sexual Orientation Not on file documented as of this encounter Plan of Treatment Upcoming Encounters Date Type Department Care Team (Late st Contact Info) Description 01/05/2025 11:00 AM CDT Office Visit [facility] - Endocrinology [address] [place] [phone] Faraz Vickers MD [address] [place] [phone] 02/15/2025 9:10 AM CDT Office Visit [facility] Orthopedics [address] [phone] Reynaldo Willis PA-C [address] [phone] 05/18/2025 8:40 AM IT APPLICATION ARCHITECT Documentation [facility] Health Cancer Care [address] [place] [phone] 05/18/2025 9:00 AM IT APPLICATION ARCHITECT Office Visit [facility] Cancer Care [address] [place] [phone] Lizbet Puentes MD [address] [place] [phone] 05/18/2025 11:00 AM IT APPLICATION ARCHITECT Office Visit [facility] - Internal Medicine [address] [place] [address], [place] [phone] Jorden Modi MD [address] [facility] [address] [place] [phone] 05/25/2025 11:00 AM IT APPLICATION ARCHITECT Office Visit [facility] Heart & Vascular Care [address] [facility] [address] [place] [address] Brian Min MD [address] [place] [address] -[phone] (Work) documented as of this encounter Visit Diagnoses Not on filedocumented in this encounter Care Teams Power Station Operator Relationship Specialty Start Date End Date Rohit Torres DO PCP - General 05/15/08 06/09/22 Rohit Torres DO [address] [place] [address] PCP - Attributed-[facility] [place] 01/17/22 04/18/22 Jorden Modi MD [address] [place] [address] [address] [place] [phone] PCP - Attributed-[facility] MA 04/19/22 07/06/23 Jorden Modi MD [address] [place] [address] [address] [place] [phone] PCP - General Internal Medicine 06/10/22 06/14/22 Jorden Modi MD [address] [place] [address] [address] [place] [phone] PCP - General Internal Medicine 06/15/22 Jorden Modi MD [address] [facility] [address] [place] [phone] PCP - Attributed-[facility] [place] 04/19/23 05/06/24 Jorden Modi MD [address] [place] [address] [address] [place] [phone] PCP - Attributed-[facility] [place] 05/20/24 Jorden Modi MD [address] [place], [place] [address]Y [address] [place] [phone] PCP - Attributed-[facility] [place] [facility] 06/17/24 09/03/24 Mauricio Velásquez [place] [address] [facility] [address] [place] [address] Physical Medicine and Rehabilitation 01/15/22 Myrtle Johnson [facility] Out[facility] Securities Clerk Care Management 06/15/22 06/15/22 Brian Min MD [address] [facility] [address] [place] [address] [phone] (Work) Cardiovascular Disease 06/19/22 Cinthia Watts RN Artificial Flowers SupervisorMobility Developer 03/26/23 05/14/23 Jane Fontaine MA Care Coordination Specialist Care Management 10/25/23 10/25/23 Aileen Sainz Care Coordination Specialist Care Management 06/21/24 06/21/24 documented as of this encounter
--- OUTSIDE RECORDS SUMMARY | 2024-12-12 15:38 | XMS_ITS | Encounter Summary ---
Author Organization [facility] Health Address [facility]3 [facility] [address] Care Team Providers Care New Order Clerk Name Role Phone Rohit Torres DO Primary Care Provider + Mauricio Velásquez MD Unavailable Rohit Torres DO Unavailable Jorden Modi MD Unavailable [phone] Jorden Modi MD Primary Care Provider [phone] Myrtle Johnson LMSW Unavailable [phone] Jorden Modi MD Primary Care Provider [phone] Brian Min MD Unavailable - [phone] Cinthia Watts RN Unavailable [phone] Jorden Modi MD Unavailable Jane Fontaine MA Unavailable Jorden Modi MD Unavailable [phone] Aileen Sainz Unavailable [phone] Jorden Modi MD Unavailable [phone] Encounter Details Date Type Department Care Team (Late st Contact Info) Description 01/08/2015 [facility] Visit EXTERNAL NON-[facility] DEPT Rohit Torres DO [address] [place] [address] Social History Tobacco Use Types Packs/Day Years Used Date Smoking Tobacco: Never Smokeless Tobacco: Never Alcohol Use Standard Drinks/Week Comments No 0 (1 standard drink = 0.6 oz pur e alcohol) Sex and Gender Information Value Date Recorded Sex Assigned at Male 07/03/2022 11:49 AM CDT Legal Sex Male 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 Gender Identity Not on file Sexual Orientation Not on file documented as of this encounter Plan of Treatment Upcoming Encounters Date Type Department Care Team (Late st Contact Info) Description 01/05/2025 11:00 AM CDT Office Visit [facility] - Endocrinology [address] [place] [phone] Faraz Vickers MD [address] [place] [phone] 02/15/2025 9:10 AM CDT Office Visit [facility] Orthopedics [address] [phone] Reynaldo Willis PA-C [address] [phone] 05/18/2025 8:40 AM BULK FOLDER Documentation [facility] Health Cancer Care [address] [place] [phone] 05/18/2025 9:00 AM BULK FOLDER Office Visit [facility] Cancer Care [address] [place] [phone] Lizbet Puentes MD [address] [place] [phone] 05/18/2025 11:00 AM BULK FOLDER Office Visit [facility] Medical [facility] - Internal Medicine [address] [place] [address], [place] [phone] Jorden Modi MD [address] [facility] [address] [place] [phone] 05/25/2025 11:00 AM BULK FOLDER Office Visit [facility] Heart & Vascular Care [address] [facility] [address] [place] [address] Brian Min MD [address] [facility] [address] [place] [address] [phone] (Work) documented as of this encounter Goals Goal Patient Goal Type Associated Problems Recent Progress Patient-Stated? Author Blood Pressure < 140/90 Blood Pressure 115/71(2024 1:41 PM CDT) No Paulina Woodruff MA [facility] Lifestyle: Have labs drawn Lifestyle On track( 017 8:56 AM BULK FOLDER) No Rach Alas documented as of this encounter Visit Diagnoses Not on filedocumented in this encounter Care Teams New Order Clerk Relationship Specialty Start Date End Date Rohit Torres DO PCP - General 05/15/08 06/09/22 Rohit Torres DO [address] [place] [address] PCP - Attributed-[facility] 01/17/22 04/18/22 Joredn Modi MD [address] [place] [address] [address] [place] [phone] PCP - Attributed-[facility] 04/19/22 07/06/23 Jorden Modi MD [address] [place], [place] [address]W[place] [address] [place] [phone] PCP - General Internal Medicine 06/10/22 06/14/22 Jorden Modi MD [address] [place], [place] [address]Y [address] [place] [phone] PCP - General Internal Medicine 06/15/22 Jorden Modi MD [address] [place], [place] [address]Y [address] [place] [phone] PCP - Attributed-[facility] [place] 04/19/23 05/06/24 Jorden Mdoi MD [address] [place], [place] [address]Y [address] [place] [phone] PCP - Attributed-[facility] [place] 05/20/24 Jorden Modi MD [address] [place], [place] [address]Y [address] [place] [phone] PCP - Attributed-[facility] MA [facility] P4 06/17/24 09/03/24 Mauricio Velásquez [place] [address] [address] Physical Medicine and Rehabilitation 01/15/22 Myrtle Johnson [facility] Steel Hanger Care Management 06/15/22 06/15/22 Brian Min MD [address] [place] [address] [address] [place] [address] -[phone] (Work) Cardiovascular Disease 06/19/22 Cinthia Watts RN Physiotherapy AssistantTax Professional 03/26/23 05/14/23 Jane Fontaine MA Care Coordination Specialist Care Management 10/25/23 10/25/23 Aileen Sainz Care Coordination Specialist Care Management 06/21/24 06/21/24 documented as of this encounter
[2024-12-12 16:02] LABS: Anion Gap 9 mmol/L (4-12); Blood Urea Nitrogen 20 mg/dL (9-20); Calcium 9.2 mg/dL (8.4-10.2); Carbon Dioxide 22 mmol/L (22-30); Chloride 105 mmol/L (98-107); Estimated Glomerular Filt Rate 60; Glucose 100 mg/dL (65-110); Potassium 4.4 mmol/L (3.4-5.0); Sodium 136 mmol/L (137-145)
== END 2024-12-12 15:30 | disposition home or self-care (01) ==
LOC: ANHSURGERY 15:33
PROVIDERS: Anesthesiology; Visit Provider Urology
DX: E11.9 Type 2 diabetes mellitus without complications (principal)
CPT/HCPCS: 36415; 80048

== ENCOUNTER 2024-12-21 00:38 | Day surgery (SDC) | payer MEDICARE, SELFPAY ==
--- NOTE | 2024-12-11 07:41 | PM.HPGS ---
History of Present Illness History of Present Illness Consent: Risks, benefits, and alternatives have been discussed and questions answered. Patient agrees to proceed with procedure. Chief complaint: elevated psa Narrative: Roland Gonsales is a 69 year old male who is a former patient of Dr. Esteban found to have a PSA of 5.5 and 4 K score of 20. Prostate MRI shows 2 regions of interest. As a result of above he is agreeable to your own after prostate biopsy. He is aware the risk including, not limited to, rectal bleeding systemic infection and failure to diagnose the cancer. Review of Systems Review of Systems: All systems reviewed & are unremarkable except as noted in HPI and below PMFSH Past Medical History Medical History (Updated 12/11/24 @ 07:44 by Larry Randall MD) History of cellulitis Peripheral arterial disease Loose right total knee arthroplasty DM2 (diabetes mellitus, type 2) Venous stasis BPH (benign prostatic hyperplasia) History of diabetes mellitus Surgical History Surgical History (Updated 12/13/20 @ 23:19 by Stephanie Payton APRN) S/P rotator cuff repair History of bilateral carpal tunnel release Family History Family History (Updated 12/14/20 @ 00:44 by Stephenie Guerra) Sibling Acute myocardial infarction Father Alzheimer's dementia Mother Hypertension Social History Social History (Updated 12/13/20 @ 23:20 by Stephanie Payton APRN) Social History: The patient is and lives with his . He has 3 children. His is the durable power patent attorney for healthcare. The patient desires to be a full code. The patient works for [employer]. The patient does not use any marijuana tobacco or alcohol. Smoking status: Never smoker Alcohol intake: never Substance use: never Substance use type: does not use Gender identity (if verbalized by the patient): Male Spiritual care concerns: No (samaritan) Meds Home Medications and Allergies Home Medications ?Medication ?Instructions ?Recorded ?Confirmed ?Type alfuzosin 10 mg tablet,extended 10 mg PO DAILY 12/13/20 12/14/20 History release 24 hr (Uroxatral) clopidogrel 75 mg tablet 75 mg PO DAILY 12/13/20 12/14/20 History dapagliflozin propaned 10 1 tablet PO DAILY 12/13/20 12/14/20 History mg-metformin ER 1,000 mg tablet,ext rel 24hr (Xigduo XR) glimepiride 2 mg tablet 2 mg PO DAILY 12/13/20 12/14/20 History lisinopril 10 mg tablet 10 mg PO DAILY 12/13/20 12/14/20 History semaglutide 0.25 mg or 0.5 mg (2 0.25 mg subcut WEEKLY 12/13/20 12/14/20 History mg/1.5 mL) subcutaneous pen injector (Ozempic) Calcium-Vitamin D 1 tablet PO DAILY 12/14/20 12/14/20 History Prilosec OTC 20 mg PO DAILY 12/14/20 12/14/20 History albuterol sulfate 90 mcg/actuation 2 puff inhalation Q4H PRN 12/20/20 Rx aerosol inhaler (Proventil HFA) shortness of breath or wheezing #6.7 grams dexamethasone 6 mg tablet 6 mg PO DAILY #4 tabs 12/20/20 Rx cephalexin 500 mg capsule 500 mg PO Q8H 7 days #21 caps 12/22/20 Rx Allergies Allergy/AdvReac Type Severity Reaction Status Date / Time Sulfa (Sulfonamide Allergy Rash Verified 03/21/23 19:29 Antibiotics) Exam Const: General: no acute distress Resp: Effort & Inspection: normal respiratory effort GI: Inspection: non-distended GI Palp: No abdominal tenderness and No Guarding due to palpation present (GI) Auscultation: normal bowel sounds Assessment and Plan Assessment and plan (1) Elevated PSA: Code(s): R97.20 - Elevated prostate specific antigen [PSA] Status: Acute Assessment and Plan: Uronav prostate biopsy
[2024-12-11 10:18] VITALS: BMI 43.0
--- NOTE | 2024-12-11 10:36 | PC.NURSE ---
Report to the Outpatient Waiting Room, entrance under the green pavilion located off [facility], at time _08:30am on date __12/21/24 . Planned Procedure Time: __10:30am .? Time changes happen often and if your time is changed the preop area will call you the afternoon before. - You and your visitor will be asked to self-screen and do not enter if you have any COVID symptoms. Please call surgeon if you need to reschedule. - A mask is optional within the hospital at this time. Patients may have clear liquids (water, carbonated beverages, clear teas, apple juice) until 3 hours prior to surgery with a maximum of 20 ounces. - No food from midnight until time of surgery and no smoking, or chewing tobacco (or any form of nicotine). No chewing gum, candy or mints. (0730am) Take only the following medications with a SIP of water on the morning of surgery: NONE DO NOT STOP ANY OF YOUR OTHER PRESCRIPTION MEDICATIONS PRIOR TO SURGERY EXCEPT THE FOLLOWING Hold all vitamins and supplements for 3 days per anesthesiologist. Date of last dose is 12/16/24 Medications to discontinue per physician Plavix to [address] Randall Date to take last dose 12/13/24 Please no make-up, nail moroccan, hairspray, perfume, deodorant, or body powder the day of surgery.? No jewelry (including any body piercings) or valuables the day of surgery, leave them at home.? Please take a shower or bath the night before, or the morning of, surgery with an antibacterial soap.?(GOLD DIAL) Wear comfortable, loose fitting clothing.? - Jewelry must be removed prior to entering the operating room.? Rings and piercings that are not removed may be cut off. - The hospital will not accept responsibility for valuables.? - Please leave all valuables, including medications, at home the day of surgery. If you are going home after surgery, a licensed flatbed truck driver must drive you home.? - NO public transportation without another adult if you receive anesthesia. - We recommend that an adult stay with you for 24 hours following discharge. - We also recommend that you do not drive, make important decision, drink alcoholic beverages, or take any drugs that were not prescribed by your health care provider for at least 24 hours after your discharge time. Follow any additional instructions given to you from your surgeon. Telephone instructions given to _Patient and asked if any additional questions and then verbalized understanding. Patient advised to call surgeon office or pre surgery nurse liaison [phone] if any additional questions.
--- NOTE | 2024-12-21 06:02 | WPDHPUPDATE1 ---
History and Physical Update Update Date/Time: 12/21/24 06:02 History and Physical has been reviewed, including an updated exam of the patient. There are NO changes in the patient's condition. Risks, benefits, and alternatives have been discussed and questions answered. Patient agrees to proceed with procedure.
[2024-12-21 08:05] VITALS: BMI 43.0
[2024-12-21 08:44] VITALS: BP 123/71; PULSE 74; RESP 16; TEMP 36.3; O2SAT 97
--- NOTE | 2024-12-21 09:47 | WPDANESEPPF ---
Anes - Initial Pre Proc Eval Procedure: Operation Date: 12/21/24 10:30 Proposed Procedures p Transrectal Ultrasound Fusion Guided Prostate Biopsy - Larry Randall MD Date/Time: 12/21/24 09:47 Surgeon: Larry Randall MD Pre Op Diagnosis: elevated psa Patient Data Age: 69 Gender: M Height: 1.83 m Weight: 144.1 kg Last Vital Signs Temp 36.3 C L 12/21/24 08:44 Pulse 74 12/21/24 08:44 Resp 16 12/21/24 08:44 BP 123/71 12/21/24 08:44 Pulse Ox 97 12/21/24 08:44 Allergies Allergy/AdvReac Type Severity Reaction Status Date / Time latex Allergy Intermediate rash Verified 12/21/24 08:37 Sulfa (Sulfonamide Allergy Rash Verified 12/21/24 08:37 Antibiotics) Home Medications ?Medication ?Instructions ?Recorded ?Confirmed ?Type alfuzosin 10 mg tablet,extended 10 mg PO DAILY 12/13/20 12/11/24 History release 24 hr (Uroxatral) clopidogrel 75 mg tablet 75 mg PO DAILY 12/13/20 12/21/24 History dapagliflozin propaned 10 1 tablet PO DAILY 12/13/20 12/11/24 History mg-metformin ER 1,000 mg tablet,ext rel 24hr (Xigduo XR) glimepiride 2 mg tablet 2 mg PO DAILY 12/13/20 12/11/24 History lisinopril 10 mg tablet 10 mg PO DAILY 12/13/20 12/11/24 History semaglutide 0.25 mg or 0.5 mg (2 0.25 mg subcut WEEKLY 12/13/20 12/11/24 History mg/1.5 mL) subcutaneous pen injector (Ozempic) Calcium-Vitamin D 1 tablet PO DAILY 12/14/20 12/11/24 History Prilosec OTC 20 mg PO DAILY 12/14/20 12/11/24 History albuterol sulfate 90 mcg/actuation 2 puff inhalation Q4H PRN 12/20/20 12/11/24 Rx aerosol inhaler (Proventil HFA) shortness of breath or wheezing #6.7 grams atorvastatin 10 mg tablet 10 mg PO DAILY 12/11/24 12/11/24 History Laboratory Tests 12/21/24 08:27 POC Capillary Glucose 77 mg/dl (65-105) Patient hx anesthesia problems: none Family hx anesthesia problems: none Results Review: All pre-operative results and documents have been reviewed as part of the pre-operative evaluation. [facility] Past Medical History Medical History History of cellulitis Peripheral arterial disease Loose right total knee arthroplasty DM2 (diabetes mellitus, type 2) Venous stasis BPH (benign prostatic hyperplasia) History of diabetes mellitus Surgical History Surgical History S/P rotator cuff repair History of bilateral carpal tunnel release Family History Family History Sibling Acute myocardial infarction Father Alzheimer's dementia Mother Hypertension Social History Social History Social History: The patient is and lives with his . He has 3 children. His is the durable power assistant county attorney for healthcare. The patient desires to be a full code. The patient works for [employer]. The patient does not use any marijuana tobacco or alcohol. 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 Informed Consent: The patient's anesthetic plan and its attendant risks and benefits were discussed with the patient/family/POA. Questions were solicited and answers provided to the satisfaction of the patient/family/POA.
--- NOTE | 2024-12-21 09:58 | S_PTH ---
PATIENT: Roland Gonsales LOC: [facility] U#:[id number] AGE/SX: 69/M ROOM: RE12/21/[address]: Larry Randall MD : 1955 BED: DIS: 12/21/2024 SPEC #: [id number] RECD: 12/21/24 11:13 STATUS: NETTIE RE #: [id number] NABEEL: 12/21/24 09:[address]: Larry Randall DEPT: [facility] Surgical RECD BY: Thania Viveros Tissues: A - Prostate Bx B - Prostate Bx C - Prostate Bx D - Prostate Bx E - Prostate Bx F - Prostate Bx G - Prostate Bx H - Prostate Bx I - Prostate Bx J - Prostate Bx K - Prostate Bx L - Prostate Bx M - Prostate Bx N - Prostate Bx Procedures: Unstained Slides Hematoxylin and Eosin Stain Prostate Biopsy PIN 4 Prostate Triple Stain
[2024-12-21] MEDS: cefTRIAXone 1 GM in SODIUM CHLORIDE 0.9% IV 50 ML 100 ML IVPB (10:00)
--- NOTE | 2024-12-21 10:26 | P.OP_ITS ---
Procedure Note - Detailed Date of Procedure 12/21/24 Pre-op Diagnosis Elevated PSA, abnormal prostate MRI Post-op Diagnosis Same Procedure Performed Uronav prostate biopsy Surgeon Larry Randall MD Anesthesia MAC Description of Procedure Patient is brought to the operative suite where he is positioned in the left lateral position. Systemic sedation is administered per the anesthesia department. Surgical time-out is undertaken and it's verified the patient has received preoperative antibiotics. Transrectal ultrasonography is undertaken with a standard transrectal probe. The Dial a Dealer system is used to superimpose his previously obtained mpMRI prostate images on the real-time transrectal ultrasond images. Prostate volume is calculated at 47cc. On the previous mpMRI there are 2 regions of interest. Using the transrectal needle design for prostate biopsies 3 cores from each region of interest her obtain. We then proceeded with a standard 12 core prostate biopsy. Transrectal probe was removed and patient taken to recovery room having tolerated the procedure well. Blood loss was less than 10 cc. Pathology Yes Complications No immediate complications
[2024-12-21 10:30] VITALS: BP 92/59; PULSE 89; RESP 14; O2SAT 95
[2024-12-21] MEDS: LACTATED RINGERS 1,000 ML 30 ML IV CONT (10:30)
[2024-12-21 11:00] VITALS: BP 138/92; PULSE 76; RESP 20
[2024-12-21 11:15] VITALS: BP 127/83; PULSE 71; RESP 20
== END 2024-12-21 11:20 | disposition home or self-care (01) ==
PROVIDERS: Visit Provider Urology
PROC: (CPT 55700; principal; 2024-12-21 10:30)
DX: C61 Malignant neoplasm of prostate (principal); E11.9 Type 2 diabetes mellitus without complications; E66.01 Morbid (severe) obesity due to excess calories; Z68.41 Body mass index [BMI] 40.0-44.9, adult
CPT/HCPCS: 55700; 76872; 82948; 88344; G0416; J0696; J2003; J2250; J2704; J3010; J7120